=== PATIENT | male | born 1990 | race African-American/Black ===

== ENCOUNTER 2016-05-15 20:38 | Emergency (ER) | payer OTHER ==
[~2016-05-15] VITALS: Ht 162.6 cm; Wt 59.0 kg
[~2016-05-15 20:38] MED LIST: AMLO10TA4; AURYXIA PO; CALC0.25 PO; CALC500C PO; CALC500T13 PO; CALC667C6 PO; CLOP75TA27 PO; DARB60DI SQ; FOLI1TAB30 PO; HUM100VI5; HYDR-2666 PO; INSU100I17; OXYC1TAB7 PO; SEVE800T9 PO; TACR1CAP6 PO; WARF5TAB PO
[2016-05-15 20:55] VITALS: BP 139/68
[2016-05-15 21:49] LABS: CREATININE 15.1 mg/dL (0.7-1.3); GFR 4.9; POTASSIUM 4.6 mmol/L (3.5-5.1)
[2016-05-15 22:12] LABS: ALBUMIN/GLOBULIN RATIO 0.9 (1.0-1.7); TOTAL BILIRUBIN 0.4 mg/dL (0.2-1.0); TOTAL PROTEIN 8.5 g/dL (6.4-8.2)
[2016-05-15] MEDS ORDERED: CALC0.5C PO (23:01)
[2016-05-15] MEDS ORDERED: CALC-77 PO (23:10)
--- NOTE | 2016-05-15 23:10 | PHYS DOC ---
Past Medical History Past Medical History: Hyperthyroid, Renal Failure Additional Past Medical Histor: Kidney's did not grow from . Past Surgical History: Other Additional Past Surgical Histo: THYROIDECTOMY, FISTULA LEFT THIGH, KIDNEY TRANSPLANT X 2 Alcohol Use: Occasionally Drug Use: Marijuana Adult General Chief Complaint Chief Complaint: ABNORMAL LABS [facility] HPI This is a 25 yo male presenting with a hypocalcemia taken on labwork yesterday in the 5.5 range per the patient. Patient has history of hypocalcemia secondary to history of parathyroidectomy. Pt was recently admitted to the hospital in the last several weeks. At that time, the patient was having paresthesias and episodes of tetany. He was given IV calcium in the department and ultimately was discharged with calcium supplementation. Patient does claim that he has been compliant with his calcium at home but is unaware of any the meds he takes and not described to me the manner in which she takes them. He is unsure which ones he takes with meals or without meals. He denies any symptoms right now and feels that his stated baseline. He has been compliant with his dialysis therapy and is due to take it in the morning. 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 He denies any other health problems. Review of Systems Review of Systems Constitutional: Denies fever or chills [] Eyes: Denies change in visual acuity, redness, or eye pain [] HENT: Denies nasal congestion or sore throat [] Respiratory: Denies cough or shortness of breath [] Cardiovascular: No additional information not addressed in HPI [] GI: Denies abdominal pain, nausea, vomiting, bloody stools or diarrhea [] : Denies dysuria or hematuria [] Musculoskeletal: Denies back pain or joint pain [] Integument: Denies rash or skin lesions [] Neurologic: Denies headache, focal weakness or sensory changes [] Endocrine: Denies polyuria or polydipsia [] Allergies Allergies Allergies Coded Allergies Type Severity Reaction Last Updated Verified shellfish derived Allergy Severe Anaphylaxis 04/18/16 Yes Iodinated Contrast Media - Oral and Allergy Intermediate 04/25/16 Yes iodine Allergy Intermediate 04/25/16 Yes povidone-iodine Allergy Intermediate ITCHY 04/25/16 Yes soap Allergy Intermediate ITCHY 04/25/16 Yes Physical Exam Physical Exam Constitutional: Well developed, well nourished, no acute distress, non-toxic appearance. [] HENT: Normocephalic, atraumatic, bilateral external ears normal, oropharynx moist, no oral exudates, nose normal. [] Eyes: PERRLA, EOMI, conjunctiva normal, no discharge. [] Neck: Normal range of motion, no tenderness, supple, no stridor. [] Cardiovascular:Heart rate regular rhythm, no murmur [] Lungs & Thorax: Bilateral breath sounds clear to auscultation [] Abdomen: Bowel sounds normal, soft, no tenderness, no masses, no pulsatile masses. [] Skin: Warm, dry, no erythema, no rash. [] Back: No tenderness, no CVA tenderness. [] Extremities: No tenderness, no cyanosis, no clubbing, ROM intact, no edema. [] Neurologic: Alert and oriented X 3, normal motor function, normal sensory function, no focal deficits noted. [] Psychologic: Affect normal, judgement normal, mood normal. [] Current Patient Data Vital Signs Vital Signs Date Time Temp Pulse Resp B/P Pulse Ox O2 Delivery O2 Flow Rate FiO2 05/15/16 20:55 98.1 81 16 139/68 98 Room Air 98.1 Lab Values Laboratory Tests Test 05/15/16 20:50 Sodium Level 142mmol/L (136-145) Potassium Level 4.6mmol/L (3.5-5.1) Chloride Level 98mmol/L (98-107) Carbon Dioxide Level 34mmol/L (21-32) H Anion Gap 10 (6-14) Blood Urea Nitrogen 52mg/dL (8-26) H Creatinine 15.1mg/dL (0.7-1.3) H Estimated GFR (Cockcroft-Gault) 4.9 BUN/Creatinine Ratio 3 (6-20) L Glucose Level 81mg/dL (70-99) Calcium Level 6.0mg/dL (8.5-10.1) *L Total Bilirubin 0.4mg/dL (0.2-1.0) Aspartate Amino Transferase (AST) 34U/L (15-37) Alanine Aminotransferase (ALT) 23U/L (16-63) Alkaline Phosphatase 266U/L (46-116) H Total Protein 8.5g/dL (6.4-8.2) H Albumin 4.0g/dL (3.4-5.0) Albumin/Globulin Ratio 0.9 (1.0-1.7) L Laboratory Tests 05/15/16 20:50 EKG EKG [] Radiology/Procedures Radiology/Procedures [] Course & Med Decision Making Course & Med Decision Making Pertinent Labs and Imaging studies reviewed. (See chart for details) Patient has a calcium level here is 6.0 but without any symptoms. A page to Dr. Forbes was made with nephrology and he stated to place the patient on calcium carbonate with vitamin D3 tablets to take 2 tabs BID was calcitriol 0.5 g 2 tabs daily. This was all to be indicated the patient and a prescription for these meds was provided. Patient will obtain his hemodialysis tomorrow as scheduled and have his calcium rechecked. I gave him strict instructions to return if he develops any paresthesias or spasm. He is also able to return if his level remains low for recalibration of his calcium supplementation. He is very agreeable with this plan and will be discharged without incident. Dragon Disclaimer Dragon Disclaimer This electronic medical record was generated, in whole or in part, using a voice recognition dictation system. Departure Departure Impression: Primary Impression: Hypocalcemia Disposition: HOME, SELF-CARE Admitting Physician: Other Condition: GOOD Referrals: NO PCP (PCP) KARINA DONATO MD Patient Instructions: Hypocalcemia, Adult Additional Instructions: Please take your calcium supplements as prescribed. Continue to obtain your hemodialysis as scheduled. Follow up closely with Dr. Donato as needed for your calcium level and kidney function. Return to the ER if you develop any worsening of your symptoms such as tingling or spasm. Scripts Calcium Carb & Cit/Vitamin D3 (Calcium + D3 Er Tablet)1 Each Tablet.er2 Tab PO TID #30 Please take without meals Prov:NINA LEPE DO 05/15/16 Calcitriol 0.5 Mcg Capsule0.5 Mcg PO BID #30 Prov:NINA LEPE DO 05/15/16 NINA LEPE DO May 15, 2016 23:10
== END 2016-05-15 23:24 | disposition home or self-care (01) ==
LOC: ER 20:38
DX: E83.51 Hypocalcemia (principal); N18.9 Chronic kidney disease, unspecified; F12.10 Cannabis abuse, uncomplicated; Z99.2 Dependence on renal dialysis; E89.0 Postprocedural hypothyroidism; Z94.0 Kidney transplant status; Z91.041 Radiographic dye allergy status; Z91.013 Allergy to seafood; Z88.2 Allergy status to sulfonamides; Z91.048 Other nonmedicinal substance allergy status
CPT/HCPCS: 36415; 80053; 99283

== ENCOUNTER → 2017-03-04 | Outpatient (CLI) | payer OTHER ==
[~2017-03-04] VITALS: Ht 160 cm; Wt 61.2 kg
[~2017-03-04] MED LIST changes: +ALTEPLASE 2 MG VIAL INT CAT ONE; +CALC-77 PO; +CALC0.5C8 PO; -CLOP75TA27 PO; +CLOP75TA57 PO; +FAMOTIDINE 20 MG/2 ML VIAL IVP ONE; +FAMOTIDINE 20 MG/2 ML VIAL ONE; +HEPARIN for IV BOLUS 10,000 UNIT/10 ML VIAL. IV ONE; +HEPARIN for IV BOLUS 10,000 UNIT/10 ML VIAL. ONE; -HYDR-2666 PO; +HYDR-2758 PO; +IODIXANOL 320 MG/ML 100 ML VIAL. IART ONE; +IODIXANOL 320MG/ML 50ML VIAL. ONE; +LIDOCAINE 1% / SOD BICARB 8.4% 20 ML VIAL. IJ ONE; +MIDAZOLAM HCL/PF 2 MG/2 ML VIAL. IV ONE; +MIDAZOLAM HCL/PF 2 MG/2 ML VIAL. ONE; +ONDANSETRON PF 4 MG/2 ML VIAL. IV ONE; +ONDANSETRON PF 4 MG/2 ML VIAL. ONE; +WARF-78 PO; -WARF5TAB PO; +diphenhydrAMINE 50 MG/ML VIAL IVP ONE; +diphenhydrAMINE 50 MG/ML VIAL ONE; +fentaNYL PF VIAL 100 MCG/2 ML VIAL IV ONE; +fentaNYL PF VIAL 100 MCG/2 ML VIAL ONE; +methylPREDNISolone SOD SUCC PF 125 MG/2 ML VIAL. IV ONE; +methylPREDNISolone SOD SUCC PF 125 MG/2 ML VIAL. ONE
[2017-03-04 12:37] LABS: BASO # 0.1 x10^3/uL (0.0-0.2); BASO % 2 % (0-3); EOS % 5 % (0-3); HEMATOCRIT 36.3 % (39.0-53.0); HEMOGLOBIN 11.7 g/dL (13.0-17.5); LYMPH # 1.1 x10^3/uL (1.0-4.8); LYMPH % 28 % (24-48); MEAN CORPUSCULAR HEMOGLOBIN 31 pg (25-35); MEAN CORPUSCULAR HGB CONC 32 g/dL (31-37); MEAN CORPUSCULAR VOLUME 95 fL (79-100); MONO % 8 % (0-9); NEUT % 58 % (31-73); PLATELET COUNT 222 x10^3/uL (140-400); RED BLOOD COUNT 3.81 x10^6/uL (4.30-5.70); RED CELL DISTRIBUTION WIDTH 18.8 % (11.5-14.5); WHITE BLOOD COUNT 3.8 x10^3/uL (4.0-11.0)
[2017-03-04 12:47] LABS: CALCIUM 7.2 mg/dL (8.5-10.1); PROTHROMBIN TIME PATIENT 12.8 SEC (11.7-14.0)
[2017-03-04 13:09] LABS: CREATININE 28.7 mg/dL (0.7-1.3); GFR 2.3
[2017-03-04 13:10] LABS: POTASSIUM 6.4 mmol/L (3.5-5.1)
[2017-03-04 15:38] VITALS: BP 140/80
[2017-03-04 16:30] VITALS: BP 131/83
[2017-03-04 16:45] VITALS: BP 121/77
[2017-03-04 17:03] VITALS: BP 128/72
[2017-03-04 17:18] VITALS: BP 122/74
--- NOTE | 2017-03-05 08:43 | RAD ---
03/04/2017 1. Pharmacomechanical thrombolysis of thrombosed left lower extremity AV graft 2. Balloon venoplasty of outflow vein stenosis. 3. Balloon angioplasty of arterial anastomosis Discussion: The risks and benefits of the procedure were discussed the patient. Informed consent was obtained. The patient was brought to the fluoroscopy suite placed in the supine position. A timeout procedure was performed. The left thigh and groin were prepped and draped using maximum sterile barrier technique. 1% lidocaine without epinephrine was administered for local anesthesia. Using ultrasound guidance, the left thigh AV graft was accessed in antegrade fashion near the arterial anastomosis. A second access was obtained in similar fashion and a retrograde fashion near the venous outflow. 2 infusion catheters were placed throughout the graft and 8 mg of TPA was administered throughout the graft. After a 15 minute intubation the infusion catheters were exchanged for 7 [place] vascular sheaths. Balloon maceration of the thrombus was performed from the antegrade access, and then subsequently the retrograde access. Fistulogram was obtained demonstrating resolution of the majority of clot however poor inflow is again noted. The arterial plug was then pulled with a partially inflated 5 mm balloon. Some wasting of the balloon was noted. Therefore balloon angioplasty at the arterial anastomosis was also performed with 5 mm balloon. Following this there was reestablishment of brisk flow through the graft. No significant residual thrombus was identified. Recurrent outflow vein stenosis was again seen involving the majority of the left external iliac vein. Mild in-stent stenosis was again noted. Angioplasty of outflow bland was performed x 10 mm x 8 mm balloon. Several areas of wasting are noted. Following angioplasty recurrent narrowing was seen which appear to be very last. The external iliac vein would accept the 10 mm balloon without wasting or any discomfort. Flow through the vein was brisk. The benefits of stenting versus repeated venoplasty were discussed with the patient. In conjunction with the patient was decided to hold off on stenting at current time, however should stenosis/thrombosis recur stenting will be performed. Overall treatment resulted in significantly improved morphology and improvement in flow through the fistula. The procedures performed under conscious sedation including continuous cardiopulmonary monitoring via a dedicated sedation nurse. Sedation time was approximately 1.5 hours Fluoroscopy time: 15.5 minutes Dose area product: 234 Gycm2 Impression: Successful thrombolysis of the previously completely thrombosed left lower extremity AV graft. Repeat balloon venoplasty of the stenotic outflow vein.
== END | disposition home or self-care (01) ==
LOC: INTRAD 12:13
PROVIDERS: ATTEND Internal Medicine Nephrology
DX: T85.868A Thrombosis due to other internal prosthetic devices, implants and grafts, initial encounter (principal); Y84.8 Other medical procedures as the cause of abnormal reaction of the patient, or of later complication, without mention of misadventure at the time of the procedure; D64.9 Anemia, unspecified; E03.9 Hypothyroidism, unspecified; I12.9 Hypertensive chronic kidney disease with stage 1 through stage 4 chronic kidney disease, or unspecified chronic kidney disease; N18.9 Chronic kidney disease, unspecified; Z91.041 Radiographic dye allergy status; Z72.0 Tobacco use; Z72.89 Other problems related to lifestyle; Z86.718 Personal history of other venous thrombosis and embolism; Z86.39 Personal history of other endocrine, nutritional and metabolic disease; Z91.013 Allergy to seafood; Z91.048 Other nonmedicinal substance allergy status
CPT/HCPCS: 36415; 36901; 36905; 76937; 80048; 85025; 85610; C1757; C1758; C1769; C1892; C1894; J1200; J1644; J2250; J2405; J2930; J2997; J3010; S0028; 99152; 99153

== ENCOUNTER 2017-03-21 07:31 | Outpatient (CLI) | payer OTHER ==
[~2017-03-21] VITALS: Ht 160 cm; Wt 61.2 kg
[~2017-03-21 07:31] MED LIST changes: -ALTEPLASE 2 MG VIAL INT CAT ONE; -FAMOTIDINE 20 MG/2 ML VIAL IVP ONE; -FAMOTIDINE 20 MG/2 ML VIAL ONE; -HEPARIN for IV BOLUS 10,000 UNIT/10 ML VIAL. IV ONE; -HEPARIN for IV BOLUS 10,000 UNIT/10 ML VIAL. ONE; -IODIXANOL 320 MG/ML 100 ML VIAL. IART ONE; -IODIXANOL 320MG/ML 50ML VIAL. ONE; -LIDOCAINE 1% / SOD BICARB 8.4% 20 ML VIAL. IJ ONE; -MIDAZOLAM HCL/PF 2 MG/2 ML VIAL. IV ONE; -MIDAZOLAM HCL/PF 2 MG/2 ML VIAL. ONE; -ONDANSETRON PF 4 MG/2 ML VIAL. IV ONE; -ONDANSETRON PF 4 MG/2 ML VIAL. ONE; -diphenhydrAMINE 50 MG/ML VIAL IVP ONE; -diphenhydrAMINE 50 MG/ML VIAL ONE; -fentaNYL PF VIAL 100 MCG/2 ML VIAL IV ONE; -fentaNYL PF VIAL 100 MCG/2 ML VIAL ONE; -methylPREDNISolone SOD SUCC PF 125 MG/2 ML VIAL. IV ONE; -methylPREDNISolone SOD SUCC PF 125 MG/2 ML VIAL. ONE
[2017-03-21] MEDS ORDERED: LIDOCAINE 1% / SOD BICARB 8.4% 20 ML VIAL. IJ ONE ×2 (07:54→09:15)
[2017-03-21] MEDS ORDERED: IOHEXOL 300 MG/ML 100ML VIAL. ONE (07:54)
[2017-03-21] MEDS ORDERED: ALTEPLASE 2 MG VIAL INT CAT ONE (08:00)
[2017-03-21 08:06] VITALS: BP 134/80
[2017-03-21 08:11] LABS: BASO % 0 % (0-3); EOS % 7 % (0-3); HEMATOCRIT 33.7 % (39.0-53.0); HEMOGLOBIN 10.7 g/dL (13.0-17.5); LYMPH # 1.7 x10^3/uL (1.0-4.8); LYMPH % 33 % (24-48); MEAN CORPUSCULAR HEMOGLOBIN 30 pg (25-35); MEAN CORPUSCULAR HGB CONC 32 g/dL (31-37); MEAN CORPUSCULAR VOLUME 96 fL (79-100); MONO % 9 % (0-9); NEUT % 51 % (31-73); PLATELET COUNT 224 x10^3/uL (140-400); RED BLOOD COUNT 3.51 x10^6/uL (4.30-5.70); RED CELL DISTRIBUTION WIDTH 19.8 % (11.5-14.5); WHITE BLOOD COUNT 5.2 x10^3/uL (4.0-11.0)
[2017-03-21] MEDS ORDERED: IODIXANOL 320 MG/ML 100 ML VIAL. ONE (08:20)
[2017-03-21 08:21] LABS: CREATININE 19.1 mg/dL (0.7-1.3); GFR 3.7; POTASSIUM 4.5 mmol/L (3.5-5.1); PROTHROMBIN TIME PATIENT 12.9 SEC (11.7-14.0)
[2017-03-21] MEDS ORDERED: methylPREDNISolone SOD SUCC PF 125 MG/2 ML VIAL. IV ONE ×2 (08:30→09:15)
[2017-03-21] MEDS ORDERED: FAMOTIDINE 20 MG/2 ML VIAL IVP ONE ×2 (08:30→09:15)
[2017-03-21] MEDS ORDERED: diphenhydrAMINE 50 MG/ML VIAL IV ONE (08:30)
[2017-03-21] MEDS ORDERED: MIDAZOLAM HCL/PF 5 MG/5 ML VIAL. ONE (08:41)
[2017-03-21] MEDS ORDERED: diphenhydrAMINE 50 MG/ML VIAL ONE (08:41)
[2017-03-21] MEDS ORDERED: methylPREDNISolone SOD SUCC PF 125 MG/2 ML VIAL. ONE (08:41)
[2017-03-21] MEDS ORDERED: fentaNYL PF VIAL 100 MCG/2 ML VIAL ONE (08:41)
[2017-03-21] MEDS ORDERED: FAMOTIDINE 20 MG/2 ML VIAL ONE (08:41)
--- NOTE | 2017-03-21 09:01 | PDOC1 ---
History and Physical Date of Procedure Date of Admission 03/21/17 Procedure Procedure Shuntogram, declot, possible stenting Indication Indication Cloted LLE graft History of Present Illness Reason for Visit Same Past Medical History Past Medical History ESRD, HTN Past Surgical History Past Surgical History Multiple grafts/fistulas Current Medications Current Medications Current Medications Alteplase, Recombinant (Cathflo) 8 mg 1X ONCE INT CAT ; Start 03/21/17 at 08:00 ; Stop 03/21/17 at 08:01; Status DC Lidocaine/Sodium Bicarbonate (Buffered Lidocaine 1%) 20 ml STK-MED ONCE IJ ; Start 03/21/17 at 07:54; Stop 03/21/17 at 07:55; Status DC Iohexol (Omnipaque 300 Mg/ml) 100 ml STK-MED ONCE .ROUTE ; Start 03/21/17 at 07: 54; Stop 03/21/17 at 07:55; Status DC Heparin Sodium/ Sodium Chloride 500 ml @ As Directed STK-MED ONCE .ROUTE ; Start 03/21/17 at 07:54; Stop 03/21/17 at 07:55; Status DC Iodixanol (Visipaque 320) 100 ml STK-MED ONCE .ROUTE ; Start 03/21/17 at 08:20; Stop 03/21/17 at 08:21; Status DC Methylprednisolone Sodium Succinate (SOLU-Medrol 125MG VIAL) 125 mg 1X ONCE IV ; Start 03/21/17 at 08:30; Stop 03/21/17 at 08:31; Status DC Famotidine (Pepcid Vial) 20 mg 1X ONCE IVP ; Start 03/21/17 at 08:30; Stop 03/21/17 at 08:31; Status DC Diphenhydramine HCl (Benadryl) 50 mg 1X ONCE IV ; Start 03/21/17 at 08:30; Stop 03/21/17 at 08:31; Status DC Famotidine (Pepcid Vial) 20 mg STK-MED ONCE .ROUTE ; Start 03/21/17 at 08:41; Stop 03/21/17 at 08:42; Status DC Fentanyl Citrate (Fentanyl 2ml Vial) 100 mcg STK-MED ONCE .ROUTE ; Start at 08:41; Stop 03/21/17 at 08:42; Status DC Midazolam HCl (Versed) 5 mg STK-MED ONCE .ROUTE ; Start 03/21/17 at 08:41; Stop 03/21/17 at 08:42; Status DC Diphenhydramine HCl (Benadryl) 50 mg STK-MED ONCE .ROUTE ; Start 03/21/17 at 08: 41; Stop 03/21/17 at 08:42; Status DC Methylprednisolone Sodium Succinate (SOLU-Medrol 125MG VIAL) 125 mg STK-MED ONCE .ROUTE ; Start 03/21/17 at 08:41; Stop 03/21/17 at 08:42; Status DC Active Scripts Active Calcitriol 0.5 Mcg Capsule 0.5 Mcg PO BID Oyster Shell Calcium (Calcium Carbonate) 500 Mg Tablet 2,000 Mg PO TID Reported Calcium + D3 Er Tablet (Calcium Carb & Cit/Vitamin D3) 1 Each Tablet.er 1 Each PO DAILY [Auryxia] 420 Mg PO TIDWMEALS Dialyvite Tablet (Folic Acid/Vitamin B Comp W-C) 1 Each Tablet 1 Each PO DAILY Phoslo (Calcium Acetate) 667 Mg Capsule 2 Cap PO TIDWMEALS Allergies Allergies: Coded Allergies: shellfish derived (Verified Allergy, Severe, Anaphylaxis, 04/18/16) Iodinated Contrast- Oral and IV Dye (Verified Allergy, Intermediate, ) iodine (Verified Allergy, Intermediate, 04/25/16) CONTRAST DYE povidone-iodine (Verified Allergy, Intermediate, ITCHY, 04/25/16) soap (Verified Allergy, Intermediate, ITCHY, 04/25/16) Physical Exam Vital Signs GENERAL: No apparent distress. Alert and oriented. HEENT: Head normocephalic, atraumatic. NECK: Supple LUNGS: Clear to auscultation. HEART: RRR, S1, S2 present, pulses intact EXTREMITIES: No cyanosis or edema. No thrill in LLE graft Vital Signs Date Time Temp Pulse Resp B/P (MAP) Pulse Ox O2 Delivery O2 Flow Rate FiO2 03/21/17 08:06 97.8 64 18 134/80 (98) 98 Room Air 97.8 Assessment Assessment Clotted LLE graft Problems: Plan Plan Declot, possible stenting. Will premed for iodine allergy which patient has tolerated well on prior procedures LYNN GOMEZ MD Mar 21, 2017 09:00
[2017-03-21] MEDS ORDERED: HEPARIN for IV BOLUS 10,000 UNIT/10 ML VIAL. ONE (09:12)
[2017-03-21] MEDS ORDERED: MIDAZOLAM HCL/PF 5 MG/5 ML VIAL. IV ONE (09:15)
[2017-03-21] MEDS ORDERED: fentaNYL PF VIAL 100 MCG/2 ML VIAL IV ONE (09:15)
[2017-03-21] MEDS ORDERED: diphenhydrAMINE 50 MG/ML VIAL IVP ONE (09:15)
[2017-03-21] MEDS ORDERED: HEPARIN for IV BOLUS 10,000 UNIT/10 ML VIAL. IV ONE (09:15)
[2017-03-21] MEDS ORDERED: IODIXANOL 320 MG/ML 100 ML VIAL. IART ONE (09:15)
[2017-03-21] MEDS ORDERED: oxyCODONE/APAP 5/325 1 TAB TABLET PO PRN (10:45)
[2017-03-21 11:04] VITALS: BP 110/62
[2017-03-21 11:20] VITALS: BP 121/66
[2017-03-21 11:35] VITALS: BP 117/70
[2017-03-21 11:50] VITALS: BP 122/85
[2017-03-21 12:05] VITALS: BP 132/81
--- NOTE | 2017-03-21 14:26 | RAD ---
03/04/2017 1. Pharmacomechanical thrombolysis of thrombosed left lower extremity AV graft 2. Balloon venoplasty of outflow vein stenosis. 3. Balloon angioplasty of arterial anastomosis. 4. Venous outflow self-expanding stent placement with post deployment angioplasty. Discussion: The risks and benefits of the procedure were discussed the patient. Informed consent was obtained. The patient was brought to the fluoroscopy suite placed in the supine position. A timeout procedure was performed. The left thigh and groin were prepped and draped using maximum sterile barrier technique. 1% lidocaine without epinephrine was administered for local anesthesia. Using ultrasound guidance, the left thigh AV graft was accessed in antegrade fashion near the arterial anastomosis. A second access was obtained in similar fashion and a retrograde fashion near the venous outflow. 2 infusion catheters were placed throughout the graft and 8 mg of TPA was administered throughout the graft. After a 15 minutes, the infusion catheters were exchanged for 7 Swiss vascular sheaths. Balloon maceration of the thrombus was performed from the antegrade access, and then subsequently the retrograde access. The arterial plug was then pulled with a partially inflated 5 mm balloon. Some wasting of the balloon was noted. Therefore balloon angioplasty at the arterial anastomosis was also performed with 5 mm balloon. Subsequent shuntogram demonstrated brisk flow through the graft. No significant residual thrombus was identified. Recurrent outflow vein stenosis was again seen involving the majority of the left external iliac vein. Mild in-stent stenosis was again noted. Angioplasty of outflow bland was performed with a 8 mm x 8 cm balloon. Several areas of wasting are noted. Following angioplasty recurrent long segment narrowing in the venous outflow tract was again seen. Given the patient was recently intervened upon on 03/04/2017 with recurrent thrombosis, it was decided to place stents along the narrowed venous outflow tract. A 10 mm x 8 cm Smart stent as well as a 10 mm x 4 cm Smart stent were deployed along the length of narrowing. Postplacement angioplasty was performed with the 8 mm x 8 cm balloon. Follow-up shuntogram demonstrated brisk flow with no residual stenosis. The procedures performed under conscious sedation including continuous cardiopulmonary monitoring via a dedicated sedation nurse. Sedation time was approximately 105 minutes. Fluoroscopy time: 16.8 minutes Dose area product: 121 Gycm2 Impression: Successful thrombolysis of the previously completely thrombosed left lower extremity AV graft. Repeat balloon venoplasty of the stenotic outflow vein and stent. Given the residual long segment narrowing and rethrombosis despite recent intervention, decision was made to place stents in the venous outflow tract along the areas of narrowing. After stent appointment and angioplasty, brisk flow is seen through the length of the stent with no residual stenosis.
== END 2017-03-21 12:30 | disposition home or self-care (01) ==
LOC: INTRAD 07:31
PROVIDERS: ATTEND Internal Medicine Nephrology
DX: T85.868A Thrombosis due to other internal prosthetic devices, implants and grafts, initial encounter (principal); Y84.8 Other medical procedures as the cause of abnormal reaction of the patient, or of later complication, without mention of misadventure at the time of the procedure; Y92.89 Other specified places as the place of occurrence of the external cause; I12.0 Hypertensive chronic kidney disease with stage 5 chronic kidney disease or end stage renal disease; N18.6 End stage renal disease; Z99.2 Dependence on renal dialysis; E03.9 Hypothyroidism, unspecified; F17.200 Nicotine dependence, unspecified, uncomplicated; Z72.0 Tobacco use; Z86.39 Personal history of other endocrine, nutritional and metabolic disease; Z88.8 Allergy status to other drugs, medicaments and biological substances; Z91.041 Radiographic dye allergy status; Z91.013 Allergy to seafood
CPT/HCPCS: 36415; 36901; 36906; 76937; 80048; 85025; 85610; 99152; 99153; C1725; C1757; C1758; C1769; C1892; C1894; J1200; J1644; J2250; J2930; J2997; J3010; Q9967; S0028

== ENCOUNTER 2017-04-12 14:55 | Emergency (ER) | payer OTHER ==
[2017-04-12 16:18] LABS: ADD MAN DIFF? NO
[2017-04-12 16:19] LABS: BASO # 0.1 x10^3/uL (0.0-0.2); BASO % 1 % (0-3); EOS % 8 % (0-3); HEMATOCRIT 38.1 % (39.0-53.0); HEMOGLOBIN 12.1 g/dL (13.0-17.5); LYMPH # 1.3 x10^3/uL (1.0-4.8); LYMPH % 26 % (24-48); MEAN CORPUSCULAR HEMOGLOBIN 31 pg (25-35); MEAN CORPUSCULAR HGB CONC 32 g/dL (31-37); MEAN CORPUSCULAR VOLUME 97 fL (79-100); MONO % 8 % (0-9); NEUT % 58 % (31-73); PLATELET COUNT 246 x10^3/uL (140-400); RED BLOOD COUNT 3.91 x10^6/uL (4.30-5.70); RED CELL DISTRIBUTION WIDTH 19.9 % (11.5-14.5); WHITE BLOOD COUNT 5.2 x10^3/uL (4.0-11.0)
[2017-04-12 16:38] LABS: ANION GAP 14 (6-14); BLOOD UREA NITROGEN 56 mg/dL (8-26); CALCIUM 9.8 mg/dL (8.5-10.1); CARBON DIOXIDE 29 mmol/L (21-32); CHLORIDE 98 mmol/L (98-107); CREATININE 16.9 mg/dL (0.7-1.3); GFR 4.3; GLUCOSE 88 mg/dL (70-99); POTASSIUM 5.1 mmol/L (3.5-5.1); SODIUM 141 mmol/L (136-145)
[2017-04-12 16:44] LABS: TROPONINI < 0.017 ng/mL (0.000-0.055)
[2017-04-12 16:45] LABS: LACTIC ACID 0.7 mmol/L (0.4-2.0)
[2017-04-12 16:51] LABS: ALBUMIN 3.9 g/dL (3.4-5.0); ALK PHOS 43 U/L (46-116); ALT (SGPT) 13 U/L (16-63); AST (SGOT) 13 U/L (15-37); DIRECT BILIRUBIN 0.1 mg/dL (0.0-0.2); TOTAL BILIRUBIN 0.5 mg/dL (0.2-1.0); TOTAL PROTEIN 8.3 g/dL (6.4-8.2)
== END 2017-04-12 17:47 | disposition left against medical advice (07) ==
LOC: ER 14:55
DX: T82.868A Thrombosis due to vascular prosthetic devices, implants and grafts, initial encounter (principal); N18.6 End stage renal disease; E83.52 Hypercalcemia; Z99.2 Dependence on renal dialysis; E05.90 Thyrotoxicosis, unspecified without thyrotoxic crisis or storm; Z94.0 Kidney transplant status; F12.10 Cannabis abuse, uncomplicated; F17.200 Nicotine dependence, unspecified, uncomplicated; Z88.8 Allergy status to other drugs, medicaments and biological substances; Z91.041 Radiographic dye allergy status; Z91.013 Allergy to seafood; Y83.2 Surgical operation with anastomosis, bypass or graft as the cause of abnormal reaction of the patient, or of later complication, without mention of misadventure at the time of the procedure; Y82.8 Other medical devices associated with adverse incidents; Y92.89 Other specified places as the place of occurrence of the external cause
CPT/HCPCS: 36415; 80048; 80076; 83605; 83690; 84484; 85025; 93005; 93923; 99285-25

== ENCOUNTER 2017-04-14 12:38 | Inpatient (IN) | payer OTHER ==
[2017-04-14 13:22] LABS: ADD MAN DIFF? NO
[2017-04-14 13:26] LABS: BASO # 0.1 x10^3/uL (0.0-0.2); BASO % 2 % (0-3); EOS % 7 % (0-3); HEMATOCRIT 37.7 % (39.0-53.0); LYMPH # 1.1 x10^3/uL (1.0-4.8); LYMPH % 28 % (24-48); MEAN CORPUSCULAR HEMOGLOBIN 31 pg (25-35); MEAN CORPUSCULAR HGB CONC 32 g/dL (31-37); MEAN CORPUSCULAR VOLUME 97 fL (79-100); MONO % 8 % (0-9); NEUT % 56 % (31-73); PLATELET COUNT 284 x10^3/uL (140-400); RED BLOOD COUNT 3.89 x10^6/uL (4.30-5.70); RED CELL DISTRIBUTION WIDTH 19.4 % (11.5-14.5); WHITE BLOOD COUNT 4.1 x10^3/uL (4.0-11.0)
[2017-04-14 13:37] LABS: ANION GAP 17 (6-14); BLOOD UREA NITROGEN 76 mg/dL (8-26); CALCIUM 9.5 mg/dL (8.5-10.1); CARBON DIOXIDE 27 mmol/L (21-32); CHLORIDE 98 mmol/L (98-107); GLUCOSE 92 mg/dL (70-99); POTASSIUM 5.9 mmol/L (3.5-5.1); SODIUM 142 mmol/L (136-145)
[2017-04-14 13:38] LABS: CREATININE 21.5 mg/dL (0.7-1.3); GFR 3.2
[2017-04-14] MEDS ORDERED: ACETAMINOPHEN 325 MG TABLET. PO (14:30)
[2017-04-14] MEDS ORDERED: ONDANSETRON PF 4 MG/2 ML VIAL. IV (14:30)
[2017-04-14] MEDS: SODIUM POLYSTYRENE SULFONATE 15 GM/60 ML ORAL.SUSP. PO (14:51)
[2017-04-15 04:33] LABS: ANION GAP 18 (6-14); BLOOD UREA NITROGEN 84 mg/dL (8-26); CALCIUM 8.7 mg/dL (8.5-10.1); CARBON DIOXIDE 24 mmol/L (21-32); CHLORIDE 97 mmol/L (98-107); GLUCOSE 102 mg/dL (70-99); POTASSIUM 4.9 mmol/L (3.5-5.1); SODIUM 139 mmol/L (136-145)
[2017-04-15 04:37] LABS: CREATININE 22.4 mg/dL (0.7-1.3); GFR 3.1
[2017-04-15] MEDS ORDERED: ONDANSETRON PF 4 MG/2 ML VIAL. IV (11:00)
[2017-04-15] MEDS: CALCITRIOL 0.25 MCG CAPSULE. PO (11:27)
[2017-04-15] MEDS: FOLIC/VIT B COMP W-C (RENAL) TABLET. PO (11:27)
[2017-04-15] MEDS: CALCIUM ACETATE 667 MG CAPSULE PO ×2 (11:27→17:00)
[2017-04-15] MEDS: FERRIC CITRATE PO ×2 (12:00→16:48)
[2017-04-15 13:11] LABS: ADD MAN DIFF? NO
[2017-04-15 13:19] LABS: BASO # 0.1 x10^3/uL (0.0-0.2); BASO % 2 % (0-3); EOS % 6 % (0-3); HEMATOCRIT 32.8 % (39.0-53.0); HEMOGLOBIN 10.5 g/dL (13.0-17.5); LYMPH # 1.1 x10^3/uL (1.0-4.8); LYMPH % 29 % (24-48); MEAN CORPUSCULAR HEMOGLOBIN 31 pg (25-35); MEAN CORPUSCULAR HGB CONC 32 g/dL (31-37); MEAN CORPUSCULAR VOLUME 97 fL (79-100); MONO % 9 % (0-9); NEUT % 55 % (31-73); PLATELET COUNT 230 x10^3/uL (140-400); RED CELL DISTRIBUTION WIDTH 19.2 % (11.5-14.5)
[2017-04-15 13:22] LABS: PROTHROMBIN TIME PATIENT 12.6 SEC (11.7-14.0)
[2017-04-15] MEDS ORDERED: MAGNESIUM SULFATE 2GM 50 ML IV (14:15)
[2017-04-15] MEDS ORDERED: HEPARIN for IV BOLUS 10,000 UNIT/10 ML VIAL. (15:37)
[2017-04-15] MEDS ORDERED: LIDOCAINE WITH 8.4% SOD BICARB 3 ML DISP.SYRIN. IJ (15:37)
[2017-04-15] MEDS ORDERED: IOHEXOL 240 MG/ML 50ML VIAL. (15:52)
[2017-04-15] MEDS: LIDOCAINE WITH 8.4% SOD BICARB 3 ML DISP.SYRIN. IJ (16:21)
[2017-04-15] MEDS ORDERED: IBUPROFEN 200 MG TABLET. PO (17:15)
[2017-04-15] MEDS: IBUPROFEN 600 MG TABLET. PO ×2 (17:30→20:10)
[2017-04-15] MEDS: DARBEPOETIN ALFA 60 MCG/0.3 ML DISP.SYRIN. SQ (21:00)
[2017-04-15] MEDS ORDERED: IV NORMAL SALINE 1000ML BAG 1,000 ML IV ×2 (23:13)
[2017-04-15] MEDS ORDERED: DIALYSIS PATIENT. MC ×2 (23:15)
[2017-04-15] MEDS ORDERED: 0.9 % SODIUM CHLORIDE 10 ML DISP.SYRIN. IV ×2 (23:15)
[2017-04-16 06:42] LABS: MAGNESIUM 2.6 mg/dL (1.8-2.4)
[2017-04-16 07:26] LABS: ALBUMIN 4.4 g/dL (3.4-5.0); ANION GAP 17 (6-14); BLOOD UREA NITROGEN 37 mg/dL (8-26); CALCIUM 9.5 mg/dL (8.5-10.1); CARBON DIOXIDE 30 mmol/L (21-32); CHLORIDE 95 mmol/L (98-107); CREATININE 13.5 mg/dL (0.7-1.3); GFR 5.5; GLUCOSE 89 mg/dL (70-99); PHOSPHORUS 7.4 mg/dL (2.6-4.7); POTASSIUM 4.5 mmol/L (3.5-5.1); SODIUM 142 mmol/L (136-145)
[2017-04-16] MEDS: FERRIC CITRATE PO ×3 (08:00→17:00)
[2017-04-16] MEDS: ASPIRIN 325 MG TABLET PO (08:00)
[2017-04-16] MEDS: FOLIC/VIT B COMP W-C (RENAL) TABLET. PO (09:00)
[2017-04-16] MEDS: CALCITRIOL 0.25 MCG CAPSULE. PO (09:00)
[2017-04-16] MEDS: CALCIUM ACETATE 667 MG CAPSULE PO ×3 (09:29→17:06)
[2017-04-16] MEDS: IBUPROFEN 600 MG TABLET. PO (09:30)
[2017-04-16] MEDS ORDERED: IV NORMAL SALINE 1000ML BAG 1,000 ML IV ×2 (10:12)
[2017-04-16] MEDS ORDERED: DIALYSIS PATIENT. MC (10:15)
[2017-04-16] MEDS ORDERED: diphenhydrAMINE 50 MG/ML VIAL IV ×2 (10:15)
[2017-04-16 15:17] LABS: HEP B SURFACE ABDY Non Reactive (.)
[2017-04-17] MEDS ORDERED: IV NORMAL SALINE 1000ML BAG 1,000 ML IV ×2 (07:54)
[2017-04-17] MEDS: FERRIC CITRATE PO ×3 (07:57→17:00)
[2017-04-17] MEDS: CALCIUM ACETATE 667 MG CAPSULE PO ×3 (07:57→17:00)
[2017-04-17] MEDS: FOLIC/VIT B COMP W-C (RENAL) TABLET. PO (07:57)
[2017-04-17] MEDS: ASPIRIN 325 MG TABLET PO (07:57)
[2017-04-17] MEDS: CALCITRIOL 0.25 MCG CAPSULE. PO (07:58)
[2017-04-17] MEDS ORDERED: DIALYSIS PATIENT. MC (08:00)
[2017-04-17] MEDS ORDERED: diphenhydrAMINE 50 MG/ML VIAL IV ×2 (08:00)
[2017-04-17] MEDS ORDERED: IV RINGERS,LACTATED 1000ML 1,000 ML IV (08:54)
[2017-04-17] MEDS ORDERED: fentaNYL PF VIAL 100 MCG/2 ML VIAL IV ×2 (09:00)
[2017-04-17] MEDS ORDERED: HYDROmorphone 2 MG/ML VIAL IV (09:00)
[2017-04-17] MEDS ORDERED: PROCHLORPERAZINE 10 MG/2 ML VIAL. IV (09:00)
[2017-04-17] MEDS ORDERED: LIDOCAINE 1% PF 2 ML VIAL. ID (09:00)
[2017-04-17] MEDS ORDERED: ONDANSETRON PF 4 MG/2 ML VIAL. IV (09:00)
[2017-04-17 09:02] LABS: ALBUMIN 4.5 g/dL (3.4-5.0); ANION GAP 18 (6-14); BLOOD UREA NITROGEN 40 mg/dL (8-26); CALCIUM 9.4 mg/dL (8.5-10.1); CARBON DIOXIDE 25 mmol/L (21-32); CHLORIDE 92 mmol/L (98-107); CREATININE 11.7 mg/dL (0.7-1.3); GFR 6.5; GLUCOSE 99 mg/dL (70-99); MAGNESIUM 2.8 mg/dL (1.8-2.4); PHOSPHORUS 8.3 mg/dL (2.6-4.7); POTASSIUM 5.5 mmol/L (3.5-5.1); SODIUM 135 mmol/L (136-145)
[2017-04-17] MEDS: IV NORMAL SALINE 1000ML BAG 1,000 ML IV (09:15)
[2017-04-17] MEDS ORDERED: fentaNYL PF VIAL 100 MCG/2 ML VIAL ×3 (09:37→12:33)
[2017-04-17] MEDS ORDERED: SEVOFLURANE 31 TO 60 MINUTES. IH (09:39)
[2017-04-17] MEDS ORDERED: PROPOFOL 20 ML IV ×2 (09:40→11:00)
[2017-04-17] MEDS ORDERED: LIDOCAINE 2% PF Vial for OR 5 ML VIAL. (09:40)
[2017-04-17] MEDS ORDERED: ONDANSETRON PF 4 MG/2 ML VIAL. (09:40)
[2017-04-17] MEDS ORDERED: DEXAMETHASONE SOD PHOS 20 MG/5 ML VIAL. (09:40)
[2017-04-17] MEDS ORDERED: PHENYLEPHRINE in 0.9% NACL PF 1 MG/10 ML SYRINGE. IV (10:02)
[2017-04-17] MEDS ORDERED: ePHEDrine PF IN SALINE 50 MG/5 ML DISP.SYRIN IV (10:12)
[2017-04-17] MEDS: LIDOCAINE 1% 20 ML VIAL. (10:16)
[2017-04-17] MEDS: HEPARIN SODIUM 5,000 UNIT in IV NORMAL SALINE 500ML BAG 500 ML IRR (10:16)
[2017-04-17] MEDS ORDERED: HEPARIN for IV BOLUS 10,000 UNIT/10 ML VIAL. (10:25)
[2017-04-17] MEDS ORDERED: PHENYLEPHRINE 10 MG/ML VIAL. ×2 (11:02)
[2017-04-17] MEDS: SURGICEL FIBRILLAR 1X2 EACH. (11:38)
[2017-04-17] MEDS ORDERED: PROCHLORPERAZINE 10 MG/2 ML VIAL. (12:33)
[2017-04-17] MEDS: MORPHINE SULFATE 2 MG/ML DISP.SYRIN. IV ×2 (13:30→13:44)
[2017-04-17] MEDS: HYDROcodone/APAP 10/325 1 TAB TABLET PO ×2 (15:05→21:21)
[2017-04-17] MEDS: IBUPROFEN 600 MG TABLET. PO (18:23)
[2017-04-18] MEDS: CALCIUM CARBONATE 500 MG TAB.CHEW PO ×2 (02:20→08:21)
[2017-04-18 05:16] LABS: ANION GAP 18 (6-14); BLOOD UREA NITROGEN 56 mg/dL (8-26); CALCIUM 9.6 mg/dL (8.5-10.1); CARBON DIOXIDE 30 mmol/L (21-32); CHLORIDE 91 mmol/L (98-107); CREATININE 14.9 mg/dL (0.7-1.3); GFR 4.9; GLUCOSE 104 mg/dL (70-99); SODIUM 139 mmol/L (136-145)
[2017-04-18 05:27] LABS: ALBUMIN 4.4 g/dL (3.4-5.0)
[2017-04-18 05:30] LABS: PHOSPHORUS 10.4 mg/dL (2.6-4.7)
[2017-04-18] MEDS ORDERED: IV NORMAL SALINE 1000ML BAG 1,000 ML IV (07:55)
[2017-04-18] MEDS ORDERED: DIALYSIS PATIENT. MC (08:00)
[2017-04-18] MEDS ORDERED: CLOPIDOGREL BISULFATE 75 MG TABLET PO (08:00)
[2017-04-18] MEDS: HYDROcodone/APAP 10/325 1 TAB TABLET PO (08:20)
== END 2017-04-18 13:00 | disposition home or self-care (01) | DRG 264 ==
LOC: ER 12:38 → 5 NORTH 14:07
PROC: 03180JD Bypass Left Brachial Artery to Upper Arm Vein with Synthetic Substitute, Open Approach (ICD-10-PCS; principal; 2017-04-17 09:52)
PROC: 06H033Z Insertion of Infusion Device into Inferior Vena Cava, Percutaneous Approach (ICD-10-PCS; 2017-04-17 09:52)
PROC: B5191ZA Fluoroscopy of Inferior Vena Cava using Low Osmolar Contrast, Guidance (ICD-10-PCS; 2017-04-17 09:52)
PROC: 5A1D70Z Performance of Urinary Filtration, Intermittent, Less than 6 Hours Per Day (ICD-10-PCS; 2017-04-17 09:52)
PROC: 5A1D70Z Performance of Urinary Filtration, Intermittent, Less than 6 Hours Per Day (ICD-10-PCS; 2017-04-17 09:52)
PROC: 0XP70JZ Removal of Synthetic Substitute from Left Upper Extremity, Open Approach (ICD-10-PCS; 2017-04-17 09:52)
DX: T82.41XA Breakdown (mechanical) of vascular dialysis catheter, initial encounter (principal); I12.0 Hypertensive chronic kidney disease with stage 5 chronic kidney disease or end stage renal disease; E87.5 Hyperkalemia; N18.6 End stage renal disease; Z94.0 Kidney transplant status; D63.1 Anemia in chronic kidney disease; E16.2 Hypoglycemia, unspecified; Y83.2 Surgical operation with anastomosis, bypass or graft as the cause of abnormal reaction of the patient, or of later complication, without mention of misadventure at the time of the procedure; Z83.3 Family history of diabetes mellitus; Z99.2 Dependence on renal dialysis; E05.90 Thyrotoxicosis, unspecified without thyrotoxic crisis or storm; E21.3 Hyperparathyroidism, unspecified; F12.90 Cannabis use, unspecified, uncomplicated; Z88.8 Allergy status to other drugs, medicaments and biological substances; Z91.041 Radiographic dye allergy status; Z91.013 Allergy to seafood
CPT/HCPCS: 36415; 36556; 71010; 76000; 76937; 77001; 80048; 80069; 83735; 85018; 85025; 85610; 86706; 87340; 93005; 93970; 99285; 99285-25; A4215; C1757; C1768; C1769; C1892; J0690; J1100; J1644; J2270; J2370; J2405; J2704; J3010; J7030; J7040

== ENCOUNTER 2017-05-06 06:49 | Emergency (ER) | payer OTHER | END 2017-05-06 07:55 | disposition home or self-care (01) | LOC: ER 06:49 | DX: N18.6 End stage renal disease (principal); T82.42XA Displacement of vascular dialysis catheter, initial encounter; Z94.0 Kidney transplant status; Z99.2 Dependence on renal dialysis; Z88.8 Allergy status to other drugs, medicaments and biological substances; Z91.041 Radiographic dye allergy status; Z91.013 Allergy to seafood; Y82.8 Other medical devices associated with adverse incidents; Y92.89 Other specified places as the place of occurrence of the external cause | CPT/HCPCS: 99282 ==

== ENCOUNTER 2017-06-02 08:41 | Inpatient (IN) | payer OTHER, BC ==
[2017-06-02 09:09] LABS: ADD MAN DIFF? NO
[2017-06-02 09:11] LABS: BASO # 0.1 x10^3/uL (0.0-0.2); BASO % 3 % (0-3); EOS # 0.3 x10^3/uL (0.0-0.7); EOS % 6 % (0-3); HEMATOCRIT 22.6 % (39.0-53.0); HEMOGLOBIN 7.2 g/dL (13.0-17.5); LYMPH # 1.3 x10^3/uL (1.0-4.8); LYMPH % 24 % (24-48); MEAN CORPUSCULAR HEMOGLOBIN 31 pg (25-35); MEAN CORPUSCULAR HGB CONC 32 g/dL (31-37); MEAN CORPUSCULAR VOLUME 97 fL (79-100); MONO # 0.4 x10^3/uL (0.0-1.1); MONO % 7 % (0-9); NEUT # 3.4 x10^3uL (1.8-7.7); NEUT % 61 % (31-73); PLATELET COUNT 355 x10^3/uL (140-400); RED BLOOD COUNT 2.32 x10^6/uL (4.30-5.70); RED CELL DISTRIBUTION WIDTH 16.9 % (11.5-14.5); WHITE BLOOD COUNT 5.6 x10^3/uL (4.0-11.0)
[2017-06-02 09:20] LABS: ANION GAP 11 (6-14); BLOOD UREA NITROGEN 35 mg/dL (8-26); BUN/CREATININE RATIO 3 (6-20); CALCIUM 9.4 mg/dL (8.5-10.1); CARBON DIOXIDE 37 mmol/L (21-32); CHLORIDE 92 mmol/L (98-107); CREATININE 13.9 mg/dL (0.7-1.3); GFR 5.3; GLUCOSE 102 mg/dL (70-99); POTASSIUM 4.1 mmol/L (3.5-5.1); SODIUM 140 mmol/L (136-145)
[2017-06-02 09:29] LABS: ALBUMIN 3.6 g/dL (3.4-5.0); ALK PHOS 32 U/L (46-116); ALT (SGPT) 10 U/L (16-63); AST (SGOT) 15 U/L (15-37); LIPASE 373 U/L (73-393); TOTAL BILIRUBIN 0.3 mg/dL (0.2-1.0); TOTAL PROTEIN 7.1 g/dL (6.4-8.2)
[2017-06-02 11:00] LABS: FECAL OB PT POSITIVE (NEG); NEG OBC FOB NEG; POS OBC FOB POS
[2017-06-02] MEDS: ONDANSETRON PF 4 MG/2 ML VIAL. IV ×2 (11:14→12:56)
[2017-06-02] MEDS: FAMOTIDINE 20 MG/2 ML VIAL IVP (11:17)
[2017-06-02] MEDS ORDERED: POLYETHYLENE GLYCOL 3350 17 GM PACKET. PO (12:30)
[2017-06-02] MEDS: PANTOPRAZOLE 40 MG TABLET.DR. PO (16:32)
[2017-06-02 17:16] LABS: % SAT IRON 29 % (15-34); IRON,SERUM 75 ug/dL (65-175)
[2017-06-02 18:49] LABS: FOLATE 4.93 ng/ml (3.2-20.0)
[2017-06-02 18:49] LABS: VITAMIN-B12 460 pg/mL (247-911)
[2017-06-03 04:22] LABS: ADD MAN DIFF? NO
[2017-06-03 04:38] LABS: BASO % 1 % (0-3); EOS # 0.5 x10^3/uL (0.0-0.7); EOS % 10 % (0-3); LYMPH # 1.7 x10^3/uL (1.0-4.8); LYMPH % 35 % (24-48); MEAN CORPUSCULAR HEMOGLOBIN 32 pg (25-35); MEAN CORPUSCULAR HGB CONC 33 g/dL (31-37); MEAN CORPUSCULAR VOLUME 97 fL (79-100); MONO # 0.4 x10^3/uL (0.0-1.1); MONO % 8 % (0-9); NEUT # 2.3 x10^3uL (1.8-7.7); NEUT % 46 % (31-73); PLATELET COUNT 327 x10^3/uL (140-400); RED BLOOD COUNT 1.81 x10^6/uL (4.30-5.70); RED CELL DISTRIBUTION WIDTH 16.9 % (11.5-14.5)
[2017-06-03 04:43] LABS: HEMATOCRIT 17.6 % (39.0-53.0); HEMOGLOBIN 5.8 g/dL (13.0-17.5)
[2017-06-03 04:59] LABS: ANION GAP 8 (6-14); BLOOD UREA NITROGEN 41 mg/dL (8-26); CALCIUM 8.7 mg/dL (8.5-10.1); CARBON DIOXIDE 38 mmol/L (21-32); CHLORIDE 93 mmol/L (98-107); CREATININE 16.1 mg/dL (0.7-1.3); GFR 4.5; GLUCOSE 125 mg/dL (70-99); POTASSIUM 3.8 mmol/L (3.5-5.1); SODIUM 139 mmol/L (136-145)
[2017-06-03] MEDS ORDERED: IV NORMAL SALINE 1000ML BAG 1,000 ML IV ×2 (08:14)
[2017-06-03] MEDS ORDERED: ALBUMIN HUMAN 25% 200 ML IV (08:15)
[2017-06-03] MEDS ORDERED: DIALYSIS PATIENT. MC ×2 (08:15)
[2017-06-03] MEDS ORDERED: ACETAMINOPHEN 500 MG TABLET PO (08:15)
[2017-06-03] MEDS ORDERED: diphenhydrAMINE 50 MG/ML VIAL IV ×2 (08:15)
[2017-06-03] MEDS ORDERED: LABETALOL 20 MG/4 ML DISP.SYRIN. IVP (08:15)
[2017-06-03 09:19] LABS: IMMEDIATE SPIN CROSSMATCH 1 3
[2017-06-03] MEDS: PANTOPRAZOLE 40 MG TABLET.DR. PO (09:23)
[2017-06-03] MEDS: fentaNYL PF VIAL 100 MCG/2 ML VIAL IV (09:24)
[2017-06-03] MEDS ORDERED: LIDOCAINE WITH 8.4% SOD BICARB 3 ML DISP.SYRIN. ×2 (10:53→11:37)
[2017-06-03] MEDS ORDERED: HEPARIN for IV BOLUS 10,000 UNIT/10 ML VIAL. (10:58)
[2017-06-03] MEDS: LIDOCAINE WITH 8.4% SOD BICARB 3 ML DISP.SYRIN. INJ (11:00)
[2017-06-03] MEDS ORDERED: methylPREDNISolone SOD SUCC PF 125 MG/2 ML VIAL. (11:39)
[2017-06-03] MEDS ORDERED: diphenhydrAMINE 50 MG/ML VIAL (11:39)
[2017-06-03] MEDS ORDERED: FAMOTIDINE 20 MG/2 ML VIAL (11:39)
[2017-06-03] MEDS ORDERED: IODIXANOL 320 MG/ML 100 ML VIAL. (11:45)
[2017-06-03] MEDS: FAMOTIDINE 20 MG/2 ML VIAL IVP (11:45)
[2017-06-03] MEDS: LIDOCAINE WITH 8.4% SOD BICARB 3 ML DISP.SYRIN. IJ (11:45)
[2017-06-03] MEDS: diphenhydrAMINE 50 MG/ML VIAL IVP (11:45)
[2017-06-03] MEDS: methylPREDNISolone SOD SUCC PF 125 MG/2 ML VIAL. IV (11:48)
[2017-06-03] MEDS: IODIXANOL 320 MG/ML 100 ML VIAL. IV (11:59)
[2017-06-03] MEDS: DARBEPOETIN ALFA 60 MCG/0.3 ML DISP.SYRIN. SQ (21:00)
[2017-06-03] MEDS: NITROGLYCERIN OINT 1 GM PACKET. RC (21:14)
[2017-06-04 01:12] LABS: HEP B SURFACE ABDY Non Reactive (.); HEP B SURFACE AG Negative (Negative)
[2017-06-04 06:19] LABS: ADD MAN DIFF? NO
[2017-06-04 06:39] LABS: BASO # 0.1 x10^3/uL (0.0-0.2); BASO % 1 % (0-3); EOS # 0.1 x10^3/uL (0.0-0.7); EOS % 1 % (0-3); LYMPH # 1.6 x10^3/uL (1.0-4.8); LYMPH % 15 % (24-48); MEAN CORPUSCULAR HEMOGLOBIN 32 pg (25-35); MEAN CORPUSCULAR HGB CONC 33 g/dL (31-37); MEAN CORPUSCULAR VOLUME 96 fL (79-100); MONO # 0.6 x10^3/uL (0.0-1.1); MONO % 6 % (0-9); NEUT # 8.5 x10^3uL (1.8-7.7); NEUT % 78 % (31-73); PLATELET COUNT 383 x10^3/uL (140-400); RED BLOOD COUNT 2.04 x10^6/uL (4.30-5.70); RED CELL DISTRIBUTION WIDTH 16.6 % (11.5-14.5); WHITE BLOOD COUNT 10.9 x10^3/uL (4.0-11.0)
[2017-06-04 06:50] LABS: ANION GAP 11 (6-14); BLOOD UREA NITROGEN 63 mg/dL (8-26); CALCIUM 8.7 mg/dL (8.5-10.1); CARBON DIOXIDE 34 mmol/L (21-32); CHLORIDE 93 mmol/L (98-107); GLUCOSE 114 mg/dL (70-99); POTASSIUM 4.8 mmol/L (3.5-5.1); SODIUM 138 mmol/L (136-145)
[2017-06-04 06:56] LABS: HEMATOCRIT 19.6 % (39.0-53.0); HEMOGLOBIN 6.5 g/dL (13.0-17.5)
[2017-06-04 07:12] LABS: CREATININE 19.3 mg/dL (0.7-1.3); GFR 3.6
[2017-06-04] MEDS: PANTOPRAZOLE 40 MG TABLET.DR. PO (10:41)
[2017-06-04] MEDS: NITROGLYCERIN OINT 1 GM PACKET. RC ×2 (10:43→20:28)
[2017-06-04] MEDS ORDERED: IV NORMAL SALINE 1000ML BAG 1,000 ML IV ×2 (13:16)
[2017-06-04] MEDS ORDERED: DIALYSIS PATIENT. MC (13:30)
[2017-06-04] MEDS ORDERED: 0.9 % SODIUM CHLORIDE 10 ML DISP.SYRIN. IV ×2 (13:30)
[2017-06-04] MEDS ORDERED: diphenhydrAMINE 50 MG/ML VIAL IV ×2 (13:30)
[2017-06-04 13:31] LABS: IMMEDIATE SPIN CROSSMATCH 1
[2017-06-04] MEDS: ONDANSETRON PF 4 MG/2 ML VIAL. IV (15:02)
[2017-06-04] MEDS: ACETAMINOPHEN 500 MG TABLET PO (17:52)
[2017-06-04] MEDS: PEG 3350/NA SULF,BICARB,CL/KCL 4,000 ML SOLUTION. PO (17:52)
[2017-06-05] MEDS: ACETAMINOPHEN 500 MG TABLET PO (00:12)
[2017-06-05] MEDS: ACETAMINOPHEN 325 MG TABLET. PO ×2 (05:12→08:19)
[2017-06-05 06:22] LABS: ADD MAN DIFF? NO
[2017-06-05 06:40] LABS: % SAT IRON 3 % (15-34)
[2017-06-05 06:44] LABS: ANION GAP 7 (6-14); BLOOD UREA NITROGEN 37 mg/dL (8-26); CALCIUM 8.9 mg/dL (8.5-10.1); CARBON DIOXIDE 33 mmol/L (21-32); CHLORIDE 98 mmol/L (98-107); CREATININE 14.4 mg/dL (0.7-1.3); GFR 5.1; GLUCOSE 92 mg/dL (70-99); POTASSIUM 5.1 mmol/L (3.5-5.1); SODIUM 138 mmol/L (136-145)
[2017-06-05 06:50] LABS: BASO # 0.1 x10^3/uL (0.0-0.2); BASO % 1 % (0-3); EOS # 0.6 x10^3/uL (0.0-0.7); EOS % 5 % (0-3); HEMATOCRIT 26.8 % (39.0-53.0); HEMOGLOBIN 8.8 g/dL (13.0-17.5); IRON,SERUM 8 ug/dL (65-175); LYMPH # 1.2 x10^3/uL (1.0-4.8); LYMPH % 10 % (24-48); MEAN CORPUSCULAR HEMOGLOBIN 30 pg (25-35); MEAN CORPUSCULAR HGB CONC 33 g/dL (31-37); MEAN CORPUSCULAR VOLUME 93 fL (79-100); MONO # 0.7 x10^3/uL (0.0-1.1); MONO % 6 % (0-9); NEUT % 78 % (31-73); PLATELET COUNT 338 x10^3/uL (140-400); RED BLOOD COUNT 2.89 x10^6/uL (4.30-5.70); RED CELL DISTRIBUTION WIDTH 17.3 % (11.5-14.5); WHITE BLOOD COUNT 11.5 x10^3/uL (4.0-11.0)
[2017-06-05] MEDS ORDERED: fentaNYL PF VIAL 100 MCG/2 ML VIAL IV ×6 (07:00→08:00)
[2017-06-05] MEDS ORDERED: MORPHINE SULFATE 2 MG/ML DISP.SYRIN. IV (07:00)
[2017-06-05] MEDS ORDERED: ONDANSETRON PF 4 MG/2 ML VIAL. IV (07:00)
[2017-06-05] MEDS: IV RINGERS,LACTATED 1000ML 1,000 ML IV (07:00)
[2017-06-05] MEDS ORDERED: PROCHLORPERAZINE 10 MG/2 ML VIAL. IV (07:00)
[2017-06-05] MEDS ORDERED: LIDOCAINE 1% PF 2 ML VIAL. ID ×3 (07:00→08:00)
[2017-06-05] MEDS ORDERED: HYDROmorphone 2 MG/ML VIAL IV (07:00)
[2017-06-05] MEDS: PANTOPRAZOLE 40 MG TABLET.DR. PO (07:30)
[2017-06-05] MEDS ORDERED: IV NORMAL SALINE 1000ML BAG 1,000 ML IV ×2 (07:36)
[2017-06-05] MEDS ORDERED: DIALYSIS PATIENT. MC (07:45)
[2017-06-05] MEDS ORDERED: diphenhydrAMINE 50 MG/ML VIAL IV ×2 (07:45)
[2017-06-05] MEDS ORDERED: ACETAMINOPHEN 500 MG TABLET PO (07:45)
[2017-06-05] MEDS: NITROGLYCERIN OINT 1 GM PACKET. RC ×2 (07:47→20:53)
[2017-06-05] MEDS: IV NORMAL SALINE 1000ML BAG 1,000 ML IV ×2 (07:51→08:21)
[2017-06-05] MEDS ORDERED: MIDAZOLAM HCL/PF 2 MG/2 ML VIAL. IV ×2 (08:00)
[2017-06-05] MEDS ORDERED: PIP/TAZO PER PHARMACY MC (08:00)
[2017-06-05] MEDS: VANCOMYCIN 1.5 GM in IV DEXTROSE 5 %-0.45 % NACL 500 ML IV (08:31)
[2017-06-05] MEDS: PIPERACILLIN/TAZOBACTAM 2.25 GM in IV NORMAL SALINE 50ML 50 ML IV ×3 (08:31→21:35)
[2017-06-05 10:03] LABS: HEMATOCRIT 22.6 % (39.0-53.0); HEMOGLOBIN 7.8 g/dL (13.0-17.5); MEAN CORPUSCULAR HEMOGLOBIN 31 pg (25-35); MEAN CORPUSCULAR HGB CONC 34 g/dL (31-37); MEAN CORPUSCULAR VOLUME 90 fL (79-100); PLATELET COUNT 275 x10^3/uL (140-400); RED CELL DISTRIBUTION WIDTH 16.3 % (11.5-14.5)
[2017-06-05 10:18] LABS: INFLUENZA A PATIENT NEGATIVE (NEGATIVE); INFLUENZA B PATIENT NEGATIVE (NEGATIVE); OBC FLU VALID
[2017-06-05] MEDS: IRON SUCROSE COMPLEX 500 MG in IV NORMAL SALINE 250ML 250 ML IV (13:22)
[2017-06-05] MEDS: VANCOMYCIN PER PHARMACY MC (14:54)
[2017-06-05] MEDS: LACTOBACILLUS RHAMNOSUS GG 1 CAPSULE. PO (20:54)
[2017-06-06] MEDS: PIPERACILLIN/TAZOBACTAM 2.25 GM in IV NORMAL SALINE 50ML 50 ML IV ×3 (05:45→21:13)
[2017-06-06 05:53] LABS: ADD MAN DIFF? NO
[2017-06-06] MEDS: VANCOMYCIN RANDOM LEVEL. MC (06:00)
[2017-06-06 06:13] LABS: BASO % 1 % (0-3); EOS # 0.6 x10^3/uL (0.0-0.7); EOS % 6 % (0-3); HEMATOCRIT 21.8 % (39.0-53.0); HEMOGLOBIN 7.4 g/dL (13.0-17.5); LYMPH # 1.2 x10^3/uL (1.0-4.8); LYMPH % 14 % (24-48); MEAN CORPUSCULAR HEMOGLOBIN 31 pg (25-35); MEAN CORPUSCULAR HGB CONC 34 g/dL (31-37); MEAN CORPUSCULAR VOLUME 91 fL (79-100); MONO # 0.7 x10^3/uL (0.0-1.1); MONO % 8 % (0-9); NEUT # 6.4 x10^3uL (1.8-7.7); NEUT % 72 % (31-73); PLATELET COUNT 244 x10^3/uL (140-400); RED BLOOD COUNT 2.41 x10^6/uL (4.30-5.70); RED CELL DISTRIBUTION WIDTH 16.8 % (11.5-14.5)
[2017-06-06 06:26] LABS: ANION GAP 8 (6-14); BLOOD UREA NITROGEN 22 mg/dL (8-26); CALCIUM 8.3 mg/dL (8.5-10.1); CARBON DIOXIDE 32 mmol/L (21-32); CHLORIDE 99 mmol/L (98-107); CREATININE 9.7 mg/dL (0.7-1.3); GFR 8.1; GLUCOSE 82 mg/dL (70-99); POTASSIUM 4.5 mmol/L (3.5-5.1); SODIUM 139 mmol/L (136-145)
[2017-06-06] MEDS: NITROGLYCERIN OINT 1 GM PACKET. RC ×3 (09:00→21:13)
[2017-06-06] MEDS: LACTOBACILLUS RHAMNOSUS GG 1 CAPSULE. PO ×2 (10:11→21:14)
[2017-06-06] MEDS: PANTOPRAZOLE 40 MG TABLET.DR. PO (10:11)
[2017-06-06] MEDS: VANCOMYCIN PER PHARMACY MC ×2 (13:29→13:46)
[2017-06-06] MEDS ORDERED: MORPHINE SULFATE 2 MG/ML DISP.SYRIN. IV (19:30)
[2017-06-06] MEDS ORDERED: HYDROcodone/APAP 5/325MG 1 TAB TABLET PO (19:30)
[2017-06-06] MEDS ORDERED: diphenhydrAMINE HCL 25 MG CAPSULE PO (19:30)
[2017-06-07 04:29] LABS: ADD MAN DIFF? NO
[2017-06-07 04:51] LABS: ANION GAP 9 (6-14); BLOOD UREA NITROGEN 33 mg/dL (8-26); CALCIUM 8.6 mg/dL (8.5-10.1); CARBON DIOXIDE 30 mmol/L (21-32); CHLORIDE 98 mmol/L (98-107); CREATININE 12.9 mg/dL (0.7-1.3); GFR 5.8; GLUCOSE 129 mg/dL (70-99); POTASSIUM 3.7 mmol/L (3.5-5.1); SODIUM 137 mmol/L (136-145)
[2017-06-07 04:55] LABS: BASO % 1 % (0-3); EOS # 0.6 x10^3/uL (0.0-0.7); EOS % 9 % (0-3); HEMATOCRIT 21.4 % (39.0-53.0); LYMPH # 1.2 x10^3/uL (1.0-4.8); LYMPH % 17 % (24-48); MEAN CORPUSCULAR HEMOGLOBIN 31 pg (25-35); MEAN CORPUSCULAR HGB CONC 33 g/dL (31-37); MEAN CORPUSCULAR VOLUME 94 fL (79-100); MONO # 0.7 x10^3/uL (0.0-1.1); MONO % 9 % (0-9); NEUT # 4.6 x10^3uL (1.8-7.7); NEUT % 65 % (31-73); PLATELET COUNT 245 x10^3/uL (140-400); RED BLOOD COUNT 2.28 x10^6/uL (4.30-5.70); RED CELL DISTRIBUTION WIDTH 16.7 % (11.5-14.5); WHITE BLOOD COUNT 7.1 x10^3/uL (4.0-11.0)
[2017-06-07] MEDS: PIPERACILLIN/TAZOBACTAM 2.25 GM in IV NORMAL SALINE 50ML 50 ML IV ×3 (05:25→21:06)
[2017-06-07] MEDS: PANTOPRAZOLE 40 MG TABLET.DR. PO (08:40)
[2017-06-07] MEDS: NITROGLYCERIN OINT 1 GM PACKET. RC ×2 (08:40→21:00)
[2017-06-07] MEDS: LACTOBACILLUS RHAMNOSUS GG 1 CAPSULE. PO ×2 (08:40→21:06)
[2017-06-07] MEDS ORDERED: DIALYSIS PATIENT. MC ×2 (11:30)
[2017-06-07 12:38] LABS: IMMEDIATE SPIN CROSSMATCH 1 1
[2017-06-07] MEDS: VANCOMYCIN PER PHARMACY MC (18:40)
[2017-06-07] MEDS: VANCOMYCIN RANDOM LEVEL. MC (20:00)
[2017-06-08 05:14] LABS: ADD MAN DIFF? NO
[2017-06-08 05:20] LABS: BASO # 0.1 x10^3/uL (0.0-0.2); BASO % 1 % (0-3); EOS # 0.6 x10^3/uL (0.0-0.7); EOS % 9 % (0-3); HEMATOCRIT 22.9 % (39.0-53.0); HEMOGLOBIN 7.6 g/dL (13.0-17.5); LYMPH # 1.1 x10^3/uL (1.0-4.8); LYMPH % 17 % (24-48); MEAN CORPUSCULAR HEMOGLOBIN 31 pg (25-35); MEAN CORPUSCULAR HGB CONC 33 g/dL (31-37); MEAN CORPUSCULAR VOLUME 93 fL (79-100); MONO # 0.9 x10^3/uL (0.0-1.1); MONO % 13 % (0-9); NEUT # 4.1 x10^3uL (1.8-7.7); NEUT % 60 % (31-73); PLATELET COUNT 245 x10^3/uL (140-400); RED BLOOD COUNT 2.46 x10^6/uL (4.30-5.70); RED CELL DISTRIBUTION WIDTH 16.8 % (11.5-14.5); WHITE BLOOD COUNT 6.8 x10^3/uL (4.0-11.0)
[2017-06-08] MEDS: PIPERACILLIN/TAZOBACTAM 2.25 GM in IV NORMAL SALINE 50ML 50 ML IV ×3 (05:39→21:11)
[2017-06-08] MEDS: LACTOBACILLUS RHAMNOSUS GG 1 CAPSULE. PO ×2 (08:53→21:10)
[2017-06-08] MEDS: PANTOPRAZOLE 40 MG TABLET.DR. PO (08:53)
[2017-06-08] MEDS: NITROGLYCERIN OINT 1 GM PACKET. RC ×2 (08:57→19:21)
[2017-06-08] MEDS: VANCOMYCIN PER PHARMACY MC (15:54)
[2017-06-09 04:22] LABS: ADD MAN DIFF? NO
[2017-06-09 04:35] LABS: BASO # 0.1 x10^3/uL (0.0-0.2); BASO % 1 % (0-3); EOS # 0.6 x10^3/uL (0.0-0.7); EOS % 9 % (0-3); HEMATOCRIT 21.2 % (39.0-53.0); HEMOGLOBIN 7.2 g/dL (13.0-17.5); LYMPH # 1.1 x10^3/uL (1.0-4.8); LYMPH % 17 % (24-48); MEAN CORPUSCULAR HEMOGLOBIN 31 pg (25-35); MEAN CORPUSCULAR HGB CONC 34 g/dL (31-37); MEAN CORPUSCULAR VOLUME 92 fL (79-100); MONO # 0.8 x10^3/uL (0.0-1.1); MONO % 12 % (0-9); NEUT # 4.2 x10^3uL (1.8-7.7); NEUT % 61 % (31-73); PLATELET COUNT 273 x10^3/uL (140-400); RED BLOOD COUNT 2.31 x10^6/uL (4.30-5.70); RED CELL DISTRIBUTION WIDTH 15.9 % (11.5-14.5); WHITE BLOOD COUNT 6.8 x10^3/uL (4.0-11.0)
[2017-06-09 04:55] LABS: ANION GAP 10 (6-14); BLOOD UREA NITROGEN 28 mg/dL (8-26); CALCIUM 8.7 mg/dL (8.5-10.1); CARBON DIOXIDE 27 mmol/L (21-32); CHLORIDE 102 mmol/L (98-107); CREATININE 13.2 mg/dL (0.7-1.3); GFR 5.7; GLUCOSE 97 mg/dL (70-99); POTASSIUM 3.9 mmol/L (3.5-5.1); SODIUM 139 mmol/L (136-145)
[2017-06-09] MEDS: PIPERACILLIN/TAZOBACTAM 2.25 GM in IV NORMAL SALINE 50ML 50 ML IV (05:44)
[2017-06-09] MEDS: PANTOPRAZOLE 40 MG TABLET.DR. PO (08:17)
[2017-06-09] MEDS: LACTOBACILLUS RHAMNOSUS GG 1 CAPSULE. PO ×2 (08:17→21:30)
[2017-06-09] MEDS: NITROGLYCERIN OINT 1 GM PACKET. RC ×2 (08:19→19:57)
[2017-06-09] MEDS: predniSONE 10 MG TABLET PO (11:00)
[2017-06-09] MEDS: HYDROCORTISONE SOD SUCC/PF 100 MG/2 ML VIAL. IV (12:04)
[2017-06-09] MEDS: diphenhydrAMINE 50 MG/ML VIAL IVP (12:05)
[2017-06-09] MEDS: LINEZOLID 600 MG TABLET PO ×2 (15:10→21:30)
[2017-06-09] MEDS ORDERED: MIDAZOLAM HCL/PF 2 MG/2 ML VIAL. (15:11)
[2017-06-09] MEDS ORDERED: fentaNYL PF VIAL 100 MCG/2 ML VIAL (15:11)
[2017-06-09] MEDS ORDERED: IODIXANOL 320 MG/ML 100 ML VIAL. (15:12)
[2017-06-09] MEDS ORDERED: LIDOCAINE WITH 8.4% SOD BICARB 3 ML DISP.SYRIN. (15:13)
[2017-06-09] MEDS ORDERED: CONTRAST GIVEN MC (15:30)
[2017-06-09] MEDS ORDERED: HEPARIN for IV BOLUS 10,000 UNIT/10 ML VIAL. (15:52)
[2017-06-09] MEDS ORDERED: VANCOMYCIN 500 MG in IV DEXTROSE 5% 100 ML IV (16:00)
[2017-06-09] MEDS: ALTEPLASE 2 MG VIAL INT CAT ×2 (17:00→17:25)
[2017-06-09] MEDS: LIDOCAINE WITH 8.4% SOD BICARB 3 ML DISP.SYRIN. IJ (17:24)
[2017-06-09] MEDS: MIDAZOLAM HCL/PF 2 MG/2 ML VIAL. IV (17:24)
[2017-06-09] MEDS: IODIXANOL 320 MG/ML 100 ML VIAL. IART (17:24)
[2017-06-09] MEDS: fentaNYL PF VIAL 100 MCG/2 ML VIAL IV (17:25)
[2017-06-09] MEDS: HEPARIN for IV BOLUS 10,000 UNIT/10 ML VIAL. IV (17:27)
[2017-06-09] MEDS ORDERED: diphenhydrAMINE HCL 25 MG CAPSULE PO (21:00)
[2017-06-10 05:59] LABS: ADD MAN DIFF? NO
[2017-06-10 06:44] LABS: BASO # 0.1 x10^3/uL (0.0-0.2); BASO % 1 % (0-3); EOS % 1 % (0-3); HEMATOCRIT 21.1 % (39.0-53.0); HEMOGLOBIN 7.2 g/dL (13.0-17.5); LYMPH % 14 % (24-48); MEAN CORPUSCULAR HEMOGLOBIN 31 pg (25-35); MEAN CORPUSCULAR HGB CONC 34 g/dL (31-37); MEAN CORPUSCULAR VOLUME 91 fL (79-100); MONO # 0.8 x10^3/uL (0.0-1.1); MONO % 11 % (0-9); NEUT # 5.4 x10^3uL (1.8-7.7); NEUT % 74 % (31-73); PLATELET COUNT 226 x10^3/uL (140-400); RED CELL DISTRIBUTION WIDTH 16.1 % (11.5-14.5); WHITE BLOOD COUNT 7.4 x10^3/uL (4.0-11.0)
[2017-06-10] MEDS: PANTOPRAZOLE 40 MG TABLET.DR. PO (08:25)
[2017-06-10] MEDS: NITROGLYCERIN OINT 1 GM PACKET. RC (09:00)
[2017-06-10] MEDS ORDERED: IV NORMAL SALINE 1000ML BAG 1,000 ML IV (10:33)
[2017-06-10] MEDS ORDERED: DIALYSIS PATIENT. MC (10:45)
[2017-06-10] MEDS: LACTOBACILLUS RHAMNOSUS GG 1 CAPSULE. PO (13:28)
[2017-06-10] MEDS: LINEZOLID 600 MG TABLET PO (13:28)
== END 2017-06-10 14:00 | disposition home or self-care (01) | DRG 853 ==
LOC: ER 08:41 → 5 SOUTH 10:00
PROC: 30233N1 Transfusion of Nonautologous Red Blood Cells into Peripheral Vein, Percutaneous Approach (ICD-10-PCS; 2017-06-02)
PROC: 5A1D70Z Performance of Urinary Filtration, Intermittent, Less than 6 Hours Per Day (ICD-10-PCS; 2017-06-02)
PROC: 06H033Z Insertion of Infusion Device into Inferior Vena Cava, Percutaneous Approach (ICD-10-PCS; 2017-06-03)
PROC: B5191ZA Fluoroscopy of Inferior Vena Cava using Low Osmolar Contrast, Guidance (ICD-10-PCS; 2017-06-03)
PROC: 057A3ZZ Dilation of Left Brachial Vein, Percutaneous Approach (ICD-10-PCS; principal; 2017-06-10)
PROC: 05743ZZ Dilation of Left Innominate Vein, Percutaneous Approach (ICD-10-PCS; 2017-06-10)
PROC: 03783ZZ Dilation of Left Brachial Artery, Percutaneous Approach (ICD-10-PCS; 2017-06-10)
PROC: B51N1ZZ Fluoroscopy of Left Upper Extremity Veins using Low Osmolar Contrast (ICD-10-PCS; 2017-06-10)
DX: A41.2 Sepsis due to unspecified staphylococcus (principal); N18.6 End stage renal disease; I12.0 Hypertensive chronic kidney disease with stage 5 chronic kidney disease or end stage renal disease; K92.2 Gastrointestinal hemorrhage, unspecified; T82.868A Thrombosis due to vascular prosthetic devices, implants and grafts, initial encounter; D62 Acute posthemorrhagic anemia; F12.90 Cannabis use, unspecified, uncomplicated; E05.90 Thyrotoxicosis, unspecified without thyrotoxic crisis or storm; F41.9 Anxiety disorder, unspecified; Y83.2 Surgical operation with anastomosis, bypass or graft as the cause of abnormal reaction of the patient, or of later complication, without mention of misadventure at the time of the procedure; Z82.49 Family history of ischemic heart disease and other diseases of the circulatory system; Z83.3 Family history of diabetes mellitus; Z87.891 Personal history of nicotine dependence; Z99.2 Dependence on renal dialysis; E21.3 Hyperparathyroidism, unspecified; Z88.8 Allergy status to other drugs, medicaments and biological substances; Z91.041 Radiographic dye allergy status; Z91.013 Allergy to seafood; R73.9 Hyperglycemia, unspecified; E89.0 Postprocedural hypothyroidism; D63.1 Anemia in chronic kidney disease; Z71.89 Other specified counseling
CPT/HCPCS: 36415; 36556; 36901; 36905; 71045; 76937; 77001; 78290; 80048; 80053; 80202; 82274; 82607; 82746; 83540; 83550; 83690; 85025; 85027; 86706; 86850; 86900; 86901; 86920; 87040; 87205; 87340; 87804; 87804-59; 96374; 96375; 99152; 99153; 99285; 99285-25; A4215; A9512; C1758; C1769; C1892; C1894; J1200; J1644; J1720; J1756; J2250; J2405; J2543; J2930; J2997; J3010; J3370; J7030; J7050; P9016; S0028

== ENCOUNTER 2017-06-17 19:19 | Emergency (ER) | payer OTHER ==
[2017-06-17 19:56] LABS: ADD MAN DIFF? NO
[2017-06-17 20:07] LABS: ANION GAP 4 (6-14); BLOOD UREA NITROGEN 21 mg/dL (8-26); CARBON DIOXIDE 36 mmol/L (21-32); CHLORIDE 99 mmol/L (98-107); CREATININE 8.8 mg/dL (0.7-1.3); GLUCOSE 101 mg/dL (70-99); SODIUM 139 mmol/L (136-145)
[2017-06-17 20:09] LABS: BASO % 1 % (0-3); EOS # 0.5 x10^3/uL (0.0-0.7); EOS % 10 % (0-3); LYMPH % 19 % (24-48); MEAN CORPUSCULAR HEMOGLOBIN 31 pg (25-35); MEAN CORPUSCULAR HGB CONC 34 g/dL (31-37); MEAN CORPUSCULAR VOLUME 91 fL (79-100); MONO # 0.4 x10^3/uL (0.0-1.1); MONO % 7 % (0-9); NEUT # 3.2 x10^3uL (1.8-7.7); NEUT % 63 % (31-73); PARTIAL THROMBOPLASTIN TIME 35 SEC (24-38); PLATELET COUNT 401 x10^3/uL (140-400); PROTHROMBIN TIME PATIENT 12.8 SEC (11.7-14.0); RED BLOOD COUNT 2.24 x10^6/uL (4.30-5.70); RED CELL DISTRIBUTION WIDTH 15.3 % (11.5-14.5); WHITE BLOOD COUNT 5.2 x10^3/uL (4.0-11.0)
[2017-06-17 20:14] LABS: HEMATOCRIT 20.4 % (39.0-53.0)
[2017-06-17 20:16] LABS: LACTIC ACID 1.7 mmol/L (0.4-2.0)
[2017-06-17 20:18] LABS: ALBUMIN 3.1 g/dL (3.4-5.0); ALK PHOS 43 U/L (46-116); ALT (SGPT) 19 U/L (16-63); AST (SGOT) 19 U/L (15-37); CALCIUM 8.9 mg/dL (8.5-10.1); DIRECT BILIRUBIN 0.1 mg/dL (0.0-0.2); TOTAL BILIRUBIN 0.3 mg/dL (0.2-1.0); TOTAL PROTEIN 7.7 g/dL (6.4-8.2)
[2017-06-17] MEDS: IV NORMAL SALINE 1000ML BAG 1,000 ML IV (21:37)
== END 2017-06-17 22:55 | disposition home or self-care (01) ==
LOC: ER 19:19
DX: D64.9 Anemia, unspecified (principal); R50.9 Fever, unspecified; E89.0 Postprocedural hypothyroidism; N18.9 Chronic kidney disease, unspecified; F12.10 Cannabis abuse, uncomplicated; Z91.013 Allergy to seafood; Z94.0 Kidney transplant status; Z91.041 Radiographic dye allergy status; Z91.048 Other nonmedicinal substance allergy status; Z99.2 Dependence on renal dialysis
CPT/HCPCS: 36415; 71046; 80048; 80076; 83605; 85025; 85610; 85730; 87040; 93005; 99285-25

== ENCOUNTER → 2017-07-02 | Outpatient (CLI) | payer OTHER ==
[~2017-07-02] MED LIST changes: -AMLO10TA4; -AURYXIA PO; -CALC-77 PO; -CALC0.25 PO; -CALC0.5C8 PO; -CALC500C PO; -CALC500T13 PO; -CALC667C6 PO; -CLOP75TA57 PO; +CONTRAST GIVEN MC; -DARB60DI SQ; +FAMOTIDINE 20 MG/2 ML VIAL; -FOLI1TAB30 PO; +HEPARIN for IV BOLUS 10,000 UNIT/10 ML VIAL.; -HUM100VI5; -HYDR-2758 PO; -INSU100I17; +IODIXANOL 320 MG/ML 100 ML VIAL.; +IODIXANOL 320MG/ML 50ML VIAL.; +IODIXANOL 320MG/ML 50ML VIAL. IV; +LIDOCAINE WITH 8.4% SOD BICARB 3 ML DISP.SYRIN.; +MIDAZOLAM HCL/PF 2 MG/2 ML VIAL.; -OXYC1TAB7 PO; -SEVE800T9 PO; -TACR1CAP6 PO; -WARF-78 PO; +diphenhydrAMINE 50 MG/ML VIAL; +fentaNYL PF VIAL 100 MCG/2 ML VIAL; +methylPREDNISolone SOD SUCC PF 125 MG/2 ML VIAL.
[2017-07-02 12:17] LABS: ADD MAN DIFF? NO
[2017-07-02 12:18] LABS: BASO # 0.1 x10^3/uL (0.0-0.2); BASO % 1 % (0-3); EOS # 0.6 x10^3/uL (0.0-0.7); EOS % 7 % (0-3); HEMOGLOBIN 8.9 g/dL (13.0-17.5); LYMPH # 1.8 x10^3/uL (1.0-4.8); LYMPH % 22 % (24-48); MEAN CORPUSCULAR HEMOGLOBIN 31 pg (25-35); MEAN CORPUSCULAR HGB CONC 33 g/dL (31-37); MEAN CORPUSCULAR VOLUME 96 fL (79-100); MONO # 0.7 x10^3/uL (0.0-1.1); MONO % 8 % (0-9); NEUT % 61 % (31-73); PLATELET COUNT 399 x10^3/uL (140-400); RED BLOOD COUNT 2.83 x10^6/uL (4.30-5.70); RED CELL DISTRIBUTION WIDTH 17.7 % (11.5-14.5); WHITE BLOOD COUNT 8.1 x10^3/uL (4.0-11.0)
[2017-07-02 12:27] LABS: PROTHROMBIN TIME PATIENT 12.5 SEC (11.7-14.0)
[2017-07-02 12:28] LABS: ANION GAP 11 (6-14); BLOOD UREA NITROGEN 43 mg/dL (8-26); CARBON DIOXIDE 33 mmol/L (21-32); CHLORIDE 97 mmol/L (98-107); CREATININE 13.4 mg/dL (0.7-1.3); GFR 5.6; GLUCOSE 93 mg/dL (70-99); POTASSIUM 4.1 mmol/L (3.5-5.1); SODIUM 141 mmol/L (136-145)
[2017-07-02] MEDS: methylPREDNISolone SOD SUCC PF 125 MG/2 ML VIAL. IV (15:54)
[2017-07-02] MEDS: FAMOTIDINE 20 MG/2 ML VIAL IVP (15:54)
[2017-07-02] MEDS: IODIXANOL 320 MG/ML 100 ML VIAL. IART (15:54)
[2017-07-02] MEDS: diphenhydrAMINE 50 MG/ML VIAL IVP (15:54)
[2017-07-02] MEDS: ALTEPLASE 2 MG VIAL INT CAT (15:54)
[2017-07-02] MEDS: fentaNYL PF VIAL 100 MCG/2 ML VIAL IV (15:55)
[2017-07-02] MEDS: MIDAZOLAM HCL/PF 2 MG/2 ML VIAL. IV (15:55)
[2017-07-02] MEDS: LIDOCAINE WITH 8.4% SOD BICARB 3 ML DISP.SYRIN. IJ (15:56)
[2017-07-02] MEDS: HEPARIN for IV BOLUS 10,000 UNIT/10 ML VIAL. IV (15:59)
== END ==
LOC: INTRAD 11:49
DX: T82.868A Thrombosis due to vascular prosthetic devices, implants and grafts, initial encounter (principal); E83.51 Hypocalcemia; E83.52 Hypercalcemia; E87.5 Hyperkalemia; D64.89 Other specified anemias; I12.0 Hypertensive chronic kidney disease with stage 5 chronic kidney disease or end stage renal disease; N18.6 End stage renal disease; K59.09 Other constipation; F12.99 Cannabis use, unspecified with unspecified cannabis-induced disorder; F17.200 Nicotine dependence, unspecified, uncomplicated; Z80.8 Family history of malignant neoplasm of other organs or systems; Z91.041 Radiographic dye allergy status; Z91.013 Allergy to seafood; Z94.0 Kidney transplant status; Z99.2 Dependence on renal dialysis; Z79.01 Long term (current) use of anticoagulants; Z86.718 Personal history of other venous thrombosis and embolism; Z86.711 Personal history of pulmonary embolism; Z91.048 Other nonmedicinal substance allergy status
CPT/HCPCS: 36415; 36901; 36905; 76937; 80048; 85025; 85610; 99152; 99153; C1725; C1757; C1769; C1892; C1894; J1200; J1644; J2250; J2930; J2997; J3010; S0028

== ENCOUNTER 2017-11-28 12:11 | Outpatient (CLI) | payer OTHER ==
[~2017-11-28] VITALS: Ht 160 cm; Wt 61.7 kg
[2017-11-28] VITALS (9 sets, daily range): BP systolic 92–113; BP diastolic 49–72
[~2017-11-28 12:11] MED LIST changes: +AMLO10TA4; +AURYXIA PO; +CALC-77 PO; +CALC0.25 PO; +CALC0.5C8 PO; +CALC500C PO; +CALC500T13 PO; +CALC667C6 PO; +CLOP75TA57 PO; -CONTRAST GIVEN MC; +DARB60DI SQ; -FAMOTIDINE 20 MG/2 ML VIAL; +FOLI1TAB30 PO; -HEPARIN for IV BOLUS 10,000 UNIT/10 ML VIAL.; +HUM100VI5; +HYDR-2758 PO; +INSU100I17; -IODIXANOL 320 MG/ML 100 ML VIAL.; -IODIXANOL 320MG/ML 50ML VIAL.; -IODIXANOL 320MG/ML 50ML VIAL. IV; -LIDOCAINE WITH 8.4% SOD BICARB 3 ML DISP.SYRIN.; +LINE600T PO; -MIDAZOLAM HCL/PF 2 MG/2 ML VIAL.; +OXYC1TAB7 PO; +SEVE800T9 PO; +TACR1CAP6 PO; +WARF-78 PO; -diphenhydrAMINE 50 MG/ML VIAL; -fentaNYL PF VIAL 100 MCG/2 ML VIAL; -methylPREDNISolone SOD SUCC PF 125 MG/2 ML VIAL.
[2017-11-28] MEDS ORDERED: LIDOCAINE WITH 8.4% SOD BICARB 3 ML DISP.SYRIN. ONE (13:14)
[2017-11-28] MEDS ORDERED: IODIXANOL 320 MG/ML 100 ML VIAL. ONE (13:26)
[2017-11-28] MEDS ORDERED: ALTEPLASE 2 MG VIAL INT CAT ONE ×2 (13:30→15:00)
[2017-11-28] MEDS ORDERED: MIDAZOLAM HCL/PF 5 MG/5 ML VIAL. ONE (13:55)
[2017-11-28] MEDS ORDERED: fentaNYL PF VIAL 100 MCG/2 ML VIAL ONE (13:55)
[2017-11-28] MEDS ORDERED: HEPARIN for IV BOLUS 10,000 UNIT/10 ML VIAL. ONE (14:02)
[2017-11-28] MEDS ORDERED: HEPARIN for IV BOLUS 10,000 UNIT/10 ML VIAL. IV ONE (14:29)
[2017-11-28] MEDS ORDERED: fentaNYL PF VIAL 100 MCG/2 ML VIAL IV ONE (14:45)
[2017-11-28] MEDS ORDERED: IODIXANOL 320 MG/ML 100 ML VIAL. IART ONE (14:45)
[2017-11-28] MEDS ORDERED: MIDAZOLAM HCL/PF 5 MG/5 ML VIAL. IV ONE (14:45)
[2017-11-28] MEDS ORDERED: LIDOCAINE WITH 8.4% SOD BICARB 3 ML DISP.SYRIN. IJ ONE (14:45)
--- NOTE | 2017-11-28 15:18 | PDOC ---
MODERATE SEDATION ASSESSMENT RISKS/ALTERNATIVES Risks/Alternatives Risks and alternatives of this type of sedation and procedure discussed with: RISK/ALTERNATIVES: Patient H & P ON CHART H & P H & P on chart and reviewed for co-morbid conditions and appropriate labs. H&P ON CHART: Yes STATUS PREG STATUS ASSESSED: Yes MEDS/ALLERGIES REVIEWED Meds/Allergies Reviewed Medications and Allergies including time and route of recently administered narcotics and sedatives. MEDS/ALLERGIES REVIEWED: Yes ASA RATING ASA RATING: II AIRWAY ASSESSMENT Airway Assessment Airway patency, oral function limitations, presence of caps, crowns, dentures, partials, and ability to extend neck assessed. AIRWAY ASSESSMENT: Yes MALLAMPATI SCORE MALLAMPATI SCORE: II PRE-SEDATION ASSESSMENT PRE-SEDATION ASSESSMENT: Yes BRETT DUENAS MD Nov 28, 2017 15:18
--- NOTE | 2017-11-28 15:20 | PDOC1 ---
History and Physical Date of Procedure Date of Admission History of Present Illness Reason for Visit Recurrent thrombosis of AV Graft Past Medical History Past Medical History see nursing pre-op assessment Current Medications Current Medications Current Medications Lidocaine/Sodium Bicarbonate (Buffered Lidocaine 1%) 3 ml STK-MED ONCE .ROUTE ; Start 11/28/17 at 13:14; Stop 11/28/17 at 13:16; Status DC Heparin Sodium/ Sodium Chloride 500 ml @ As Directed STK-MED ONCE .ROUTE ; Start 11/28/17 at 13:15; Stop 11/28/17 at 13:16; Status DC Alteplase, Recombinant (Cathflo) 6 mg 1X ONCE INT CAT ; Start 11/28/17 at 13:30 ; Stop 11/28/17 at 13:31; Status DC Iodixanol (Visipaque 320) 100 ml STK-MED ONCE .ROUTE ; Start 11/28/17 at 13:26; Stop 11/28/17 at 13:27; Status DC Midazolam HCl (Versed) 5 mg STK-MED ONCE .ROUTE ; Start 11/28/17 at 13:55; Stop 11/28/17 at 13:56; Status DC Fentanyl Citrate (Fentanyl 2ml Vial) 100 mcg STK-MED ONCE .ROUTE ; Start at 13:55; Stop 11/28/17 at 13:56; Status DC Heparin Sodium (Porcine) (Heparin Sodium) 10,000 unit STK-MED ONCE .ROUTE ; Start 11/28/17 at 14:02; Stop 11/28/17 at 14:03; Status DC Heparin Sodium/ Sodium Chloride (HEPARIN for ARTERIAL LINE FLUSH) 1,000 unit 1X ONCE IART ; Start 11/28/17 at 14:45; Stop 11/28/17 at 14:46; Status DC Lidocaine/Sodium Bicarbonate (Buffered Lidocaine 1%) 3 ml 1X ONCE IJ ; Start at 14:45; Stop 11/28/17 at 14:46; Status DC Midazolam HCl (Versed) 5 mg 1X ONCE IV ; Start 11/28/17 at 14:45; Stop at 14:46; Status DC Fentanyl Citrate (Fentanyl 2ml Vial) 100 mcg 1X ONCE IV ; Start 11/28/17 at 14: 45; Stop 11/28/17 at 14:46; Status DC Iodixanol (Visipaque 320) 100 ml 1X ONCE IART ; Start 11/28/17 at 14:45; Stop 11/28/17 at 14:46; Status DC Heparin Sodium (Porcine) (Heparin Sodium) 5,000 unit 1X ONCE IV ; Start at 14:29; Stop 11/28/17 at 14:43; Status DC Alteplase, Recombinant (Cathflo) 6 mg 1X ONCE INT CAT ; Start 11/28/17 at 15:00 ; Stop 11/28/17 at 15:01; Status DC Active Scripts Active Reported Calcitriol 0.5 Mcg Capsule 1 Cap PO DAILY [Auryxia] 420 Mg PO TIDWMEALS Dialyvite Tablet (Folic Acid/Vitamin B Comp W-C) 1 Each Tablet 1 Each PO DAILY Phoslo (Calcium Acetate) 667 Mg Capsule 3 Cap PO TIDWMEALS Allergies Allergies: Coded Allergies: shellfish derived (Verified Allergy, Severe, Anaphylaxis, 04/17/17) povidone-iodine (Verified Allergy, Intermediate, ITCHY, 04/17/17) soap (Verified Allergy, Intermediate, ITCHY, 04/17/17) Physical Exam Vital Signs Vital Signs Date Time Temp Pulse Resp B/P (MAP) Pulse Ox O2 Delivery O2 Flow Rate FiO2 11/28/17 13:14 Room Air Other see nursing pre-op assessment Other thrombosed left arm AV Graft x 2 Assessment Assessment Thrombosed AV Graft Plan Plan Shunt [place] BRETT DUENAS MD Nov 28, 2017 15:20
--- NOTE | 2017-11-28 15:24 | PDOC ---
BRIEF OPERATIVE NOTE Pre-Op Diagnosis Thrombosed AV Graft Post-Op Diagnosis same Procedure Performed Shunt declot and venous angioplasty Surgeon Kylee Anesthesia Type: Conscious Sedation Findings Thrombosed AV Graft with high grade outflow vein stenosis improved to roughly 5mm with brisk flow after 8mm high pressure angioplasty. If stenosis results in poor flows or recurrent thrombosis, this will need to be stented. 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 Moderate in graft stenosis improved s/p 7mm angioplasty. 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 Complications No immediate BRETT DUENAS MD Nov 28, 2017 15:24
[2017-11-28] MEDS ORDERED: CLOP75TA PO (15:58)
[2017-11-28] MEDS ORDERED: CLOPIDOGREL BISULFATE 75 MG TABLET PO ONE (16:15)
[2017-11-28] MEDS ORDERED: CLOPIDOGREL BISULFATE 75 MG TABLET ONE (16:15)
--- NOTE | 2017-12-03 08:22 | RAD ---
Procedure: Left arm shuntogram, with thrombolysis and angioplasty of the venous outflow and angioplasty of the shunt. Ultrasound-guided venous access for central line placement. Clinical Indication: 27-year-old with thrombosed left AV dialysis graft. No peripheral IV access could be obtained. Sedation: Conscious sedation was administered with a total intraprocedural [id number] time of 67 minutes. The patient was monitored by a qualified independent observer throughout the time of sedation. Please refer to the medical record for exact doses of medications utilized to achieve moderate sedation. Antibiotics: None Exposure: Kerma-Area Product: 27 Gycm2 Sterility: All elements of maximal sterile barrier technique including the use of a cap, mask, sterile gown, sterile gloves, large sterile sheet, appropriate hand hygiene, and 2% chlorhexidine for cutaneous antisepsis (or acceptable alternative antiseptic per current guidelines) were followed for this procedure. Consent: The procedure was explained in its entirety to the patient or the patients designated outside medical sales representative by a member of the treatment team, including a discussion of the risks, benefits and commonly accepted alternatives to the procedure, as well as the expected consequences of no therapy whatsoever. Discussion of the risks included, but was not limited to, those that are most frequent and those that are rare but possibly severe or life-threatening, as well as the possibility of unforeseen complications. Technique and Findings: Following informed consent, the patient was prepped and draped in usual sterile fashion. Ultrasound interrogation of the left neck revealed patency of the left internal jugular vein. A hardcopy ultrasound image was recorded as a 21-gauge micropuncture needle was used to gain access to this vein. The needle was exchanged over wire for a 10 cm 4 Vietnamese catheter which was advanced centrally. This catheter was then used to facilitate venous access for sedation. Attention was then turned to the left arm shunt. Ultrasound interrogation of the arm revealed 2 thrombosed shunt. The most recently functional shunt was identified by the patient. 1% lidocaine was used to achieve local anesthesia near the arterial anastomosis. Under ultrasound guidance, a 21-gauge micropuncture needle was used to gain access to the shunt. The needle was exchanged over wire for a 4 Vietnamese sheath. A speed Lyser catheter was then advanced through the thrombosed shunt and 6 mm TPA was instilled. A second area of the shunt was anesthetized with 1% lidocaine near the venous anastomosis. Once again under ultrasound guidance, a 21-gauge micropuncture was advanced into the shunt this time a retrograde fashion. This needle was exchanged over wire for a 6 Vietnamese sheath. The thrombosed shunt was massaged for 15 minutes. An angled catheter was then advanced in antegrade fashion through the shunt to the level of the subclavian vein and contrast and artery was performed demonstrating chronic occlusion of the innominate vein with marked compensatory enlargement of the hemiazygos vein and brisk flow. There is a moderate stenosis of the subclavian vein near its junction with the azygos vein, though these vessels are quite large and flow is brisk through this region and this stenosis is not likely clinically significant. The catheter was then retracted into the shunt and contrast venography was performed demonstrating thrombosis of the entire shunt to the level the venous anastomosis and slightly beyond, with a high-grade stenosis in the proximal venous outflow tract near confluence with an additional large vein. 5000 units of heparin was administered intravenously. An angled catheter was then advanced in a retrograde fashion into the brachial artery and contrast injected was performed demonstrating minimal flow into the graft, with a short segment chronic-appearing brachial artery thrombus just distal to the arterial anastomosis, with large collateral vessels reconstituting the runoff to the arm. A 5 mm x 20 mm angioplasty balloon was then advanced over a wire in a retrograde direction into the brachial artery. The balloon was inflated and used to pull the plug through the arterial anastomosis. Catheter and gram was then once again performed demonstrating congregational of flow through the graft, with moderate to severe multifocal stenosis within the proximal graft, and redemonstration of the severe stenosis of the outflow vein. An 8 mm x 40 mm high-pressure balloon was then advanced over the wire and used to angioplasty the outflow vein stenosis for 3 minutes. The balloon was removed and repeat venography was performed demonstrating significantly improved appearance, with the vessel diameter of roughly 5 mm. Flow is brisk. Consideration was given to placement of a stent, however given the presence of brisk flow, stenting was deferred at this time. Nevertheless, this stenosis may well precipitate recurrent thrombosis in the near future, at which time stenting would be required. The sheath near the arterial anastomosis was then removed is a purse string suture was applied to achieve hemostasis. A high pressure 7 mm x 80 mm angioplasty balloon was then advanced in a retrograde fashion and used to angioplasty the AV graft from the level of the arterial anastomosis to the mid graft, across multiple areas of significant stenosis. The 7 mm balloon was slightly oversized, and consequently was only inflated to nominal pressure at 10 mm. The balloon was then removed and repeat angiography demonstrated brisk flow with no significant residual stenosis throughout the graft. The retrograde sheath was then removed is a purse string suture was applied and hemostasis once again was readily achieved. Complications: No immediate Impression: 1. Thrombosed AV graft, with a high-grade venous outflow stenosis and tandem stenoses within the proximal portion of the graft. 2. Significantly improved venous outflow stenosis following 8 mm high-pressure balloon angioplasty. Despite visible angiographic flow improvement however, the diameter remains only 5 mm, and this lesion may require stenting in the near future. 3. Markedly improved appearance of the AV graft following angioplasty. 4. 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 DICTATED and SIGNED BY: BRETT DUENAS MD DATE: 11/28/17 1619 [id number]
== END 2017-11-28 17:30 | disposition home or self-care (01) ==
LOC: INTRAD 12:11
PROVIDERS: ATTEND Internal Medicine Nephrology
DX: T82.868A Thrombosis due to vascular prosthetic devices, implants and grafts, initial encounter (principal); T82.858A Stenosis of other vascular prosthetic devices, implants and grafts, initial encounter; I12.0 Hypertensive chronic kidney disease with stage 5 chronic kidney disease or end stage renal disease; N18.6 End stage renal disease; Z99.2 Dependence on renal dialysis; Z91.013 Allergy to seafood; Z91.048 Other nonmedicinal substance allergy status; Z88.8 Allergy status to other drugs, medicaments and biological substances; Z79.01 Long term (current) use of anticoagulants; Z86.718 Personal history of other venous thrombosis and embolism; Z86.711 Personal history of pulmonary embolism; Z90.5 Acquired absence of kidney; Z94.0 Kidney transplant status; E89.0 Postprocedural hypothyroidism; Z72.89 Other problems related to lifestyle; F12.90 Cannabis use, unspecified, uncomplicated; F17.210 Nicotine dependence, cigarettes, uncomplicated; Z82.49 Family history of ischemic heart disease and other diseases of the circulatory system; Y83.2 Surgical operation with anastomosis, bypass or graft as the cause of abnormal reaction of the patient, or of later complication, without mention of misadventure at the time of the procedure; Y92.89 Other specified places as the place of occurrence of the external cause
CPT/HCPCS: 36905; 76937; 99152; 99153; C1725; C1757; C1769; C1892; C1894; J1644; J2250; J2997; J3010; Q9967; 36901; 36902